=== PATIENT | male | born 1965 | race Caucasian/White ===

== ENCOUNTER 2017-01-10 05:16 | Emergency (ER) | payer MEDICAID ==
[2017-01-10 05:57] VITALS: BP 180/91
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
[2017-01-10] MEDS ORDERED: Ketorolac 60 MG/2 ML SDV IM ONE (06:45)
== END 2017-01-10 07:28 | disposition home or self-care (01) ==
LOC: JP.ED 05:16
DX: S06.0X1A Concussion with loss of consciousness of 30 minutes or less, initial encounter (principal); W01.10XA Fall on same level from slipping, tripping and stumbling with subsequent striking against unspecified object, initial encounter; Y93.9 Activity, unspecified; Y92.9 Unspecified place or not applicable; E78.00 Pure hypercholesterolemia, unspecified; I12.9 Hypertensive chronic kidney disease with stage 1 through stage 4 chronic kidney disease, or unspecified chronic kidney disease; N18.9 Chronic kidney disease, unspecified; E11.9 Type 2 diabetes mellitus without complications; Z79.4 Long term (current) use of insulin; Z79.84 Long term (current) use of oral hypoglycemic drugs; Z79.899 Other long term (current) drug therapy; M25.519 Pain in unspecified shoulder; M47.9 Spondylosis, unspecified
CPT/HCPCS: 70450; 72125; J1885; 96372; 99284-25

== ENCOUNTER 2017-07-25 05:26 | Inpatient (IN) | payer MEDICAID ==
[2017-07-25] MEDS ORDERED: Dextrose 5%-Lactated Ringers 1,000 ML IV SCH (06:30)
[2017-07-25] MEDS ORDERED: Acetaminophen 500 MG Tab PO ONE (06:33)
[2017-07-25] MEDS ORDERED: Scopolamine 1.5 MG Transdermal Patch TOP ONE (06:33)
[2017-07-25] MEDS ORDERED: Gabapentin 300 MG Cap PO ONE (06:34)
[2017-07-25] MEDS: Celecoxib 200 MG Cap PO ONE (06:52)
[2017-07-25] MEDS ORDERED: Rocuronium 50 MG/5 ML Vial ONE (06:58)
[2017-07-25] MEDS ORDERED: Propofol 200 MG/20 ML SDV ONE (06:58)
[2017-07-25] MEDS ORDERED: Dexamethasone 4 MG/ML SDV ONE (06:58)
[2017-07-25] MEDS ORDERED: Glycopyrrolate 0.2 MG/ML 5 ML MDV ONE (06:58)
[2017-07-25] MEDS ORDERED: Succinylcholine 200 MG/10 ML MDV ONE (06:58)
[2017-07-25] MEDS ORDERED: Neostigmine Methylsulfate 1 MG/ML 5 ML Syringe ONE (06:58)
[2017-07-25] MEDS ORDERED: Ondansetron 4 MG/2 ML SDV ONE (06:58)
[2017-07-25] MEDS ORDERED: cefOXitin 2 GM Vial ONE (07:04)
[2017-07-25] MEDS: cefOXitin 2 GM in Sodium Chloride 0.9% 50 ML IV ONE ×2 (07:14→10:39)
[2017-07-25] MEDS ORDERED: amLODIPine 10 MG Tab PO ONE (07:30)
[2017-07-25] MEDS ORDERED: Lidocaine 2% 100 MG/5 ML Syringe IVPUSH ONE (07:30)
[2017-07-25] MEDS ORDERED: Ropivacaine 60 ML, Dexamethasone 8 MG, EPINEPHrine 0.4 MG, Sodium Chloride 0.9% 17.6 ML NERVRT SCH ×4 (07:30)
[2017-07-25] MEDS ORDERED: Ketamine 500 MG/5 ML MDV IV SCH (07:30)
[2017-07-25] MEDS ORDERED: fentaNYL 100 MCG/2 ML SDV ONE (09:05)
[2017-07-25] MEDS ORDERED: Lactated Ringers 1,000 ML ONE (09:05)
[2017-07-25] MEDS ORDERED: Glucagon,Human Recombinant 1 MG Vial IM PRN (11:00)
[2017-07-25] MEDS ORDERED: diphenhydrAMINE 50 MG/ML SDV IVPUSH PRN (11:00)
[2017-07-25] MEDS ORDERED: Labetalol 20 MG/4 ML Syringe IVPUSH PRN (11:00)
[2017-07-25] MEDS ORDERED: SCOPOLAMINE PATCH ASK TOP SCH (11:00)
[2017-07-25] MEDS ORDERED: Ondansetron 4 MG/2 ML SDV IVPUSH PRN (11:00)
[2017-07-25] MEDS ORDERED: hydrOXYzine HCl 100 MG/2 ML SDV IM PRN (11:00)
[2017-07-25] MEDS ORDERED: 50% Dextrose in Water 50 ML Syringe IVPUSH PRN (11:00)
[2017-07-25] MEDS ORDERED: Metoclopramide 10 MG/2 ML SDV IVPUSH PRN (11:00)
[2017-07-25] MEDS: Pantoprazole 40 MG Vial IVPUSH SCH (11:55)
[2017-07-25] MEDS: Non-Formulary Medication 1 Each TOP SCH (11:56)
[2017-07-25] MEDS: Lidocaine 0.4%/D5W 2 GM/500 ML BAG IV SCH (11:56)
[2017-07-25] MEDS: Acetaminophen Soln 650 MG/20.3 ML UD Cup PO SCH ×2 (12:26→17:00)
[2017-07-25] MEDS: Pregabalin 75 MG Cap PO SCH ×2 (12:29→20:47)
[2017-07-25] MEDS: cefOXitin 2 GM in Sodium Chloride 0.9% 50 ML IV SCH ×2 (14:51→20:20)
[2017-07-25] MEDS: Dextrose 5%-Lactated Ringers 1,000 ML IV SCH ×2 (14:51→23:06)
[2017-07-25] MEDS: MVI, Adult with Vitamin K 10 ML, Thiamine 200 MG, Chromium/Copper/Mang/Selen/Zn 1 ML in... IV SCH ×4 (16:44)
[2017-07-25] MEDS: Insulin Aspart 100 Units/ML 3 ML Pen SUBCUT PRN ×2 (16:53→21:33)
[2017-07-25] MEDS: Heparin Sodium 5,000 Units/ML Vial SUBCUT SCH (17:00)
[2017-07-25] MEDS ORDERED: Insulin Detemir 100 Units/ML 3 ML Pen SUBCUT ONE (21:00)
[2017-07-25] MEDS: Pramipexole 0.5 MG Tab PO SCH (22:10)
[2017-07-26] MEDS: Acetaminophen Soln 650 MG/20.3 ML UD Cup PO SCH ×4 (00:19→18:43)
[2017-07-26] MEDS: Lidocaine 0.4%/D5W 2 GM/500 ML BAG IV SCH (00:19)
[2017-07-26] MEDS: Heparin Sodium 5,000 Units/ML Vial SUBCUT SCH ×3 (01:54→18:43)
[2017-07-26] MEDS: cefOXitin 2 GM in Sodium Chloride 0.9% 50 ML IV SCH ×2 (01:54→07:49)
[2017-07-26] MEDS ORDERED: Iohexol 647 MG/ML 50 ML SDV PO STA (02:21)
[2017-07-26] MEDS: Insulin Aspart 100 Units/ML 3 ML Pen SUBCUT PRN (04:35)
[2017-07-26] MEDS: Dextrose 5%-Lactated Ringers 1,000 ML IV SCH (05:23)
[2017-07-26] MEDS ORDERED: Insulin Detemir 100 Units/ML 3 ML Pen SUBCUT ONE (06:30)
[2017-07-26] MEDS ORDERED: Zolpidem 5 MG Tab PO PRN (07:09)
[2017-07-26] MEDS ORDERED: Ipratropium 0.06% Nasal Spray 15 ML Bottle NASBOTH PRN (07:09)
[2017-07-26] MEDS ORDERED: Fluticasone Propionate Nasal Spray 16 GM Bottle NASBOTH PRN (07:09)
[2017-07-26] MEDS: Celecoxib 200 MG Cap PO SCH (07:48)
[2017-07-26] MEDS: Pregabalin 75 MG Cap PO SCH ×3 (07:49→20:51)
[2017-07-26] MEDS: Non-Formulary Medication 1 Each TOP SCH (07:51)
--- NOTE | 2017-07-26 09:15 | PN ---
DATE OF SERVICE: 07/26/2017 SUBJECTIVE: Bora is postoperative day 1. Vital signs have been stable. He has been up ambulating. Pain is controlled. He used his CPAP last night. Blood sugars have been elevated at 344, 338, and 273. He received 20 units of Levemir last night and was started on oral metformin. REVIEW OF SYSTEMS: Remainder of review of systems is negative for any pertinent positives and negatives. OBJECTIVE: GENERAL: Bora Padilla is a pleasant 51-year-old male. He is alert and orientated. VITAL SIGNS: TPR 95.9, 59, 16, blood pressure 143/68. HEENT: Negative. NECK: Supple. HEART: Regular rate and rhythm. LUNGS: Clear. ABDOMEN: Dressings dry and intact. Abdominal binder is on. DEVANG drain put out 120 mL of a pink serosanguineous drainage. EXTREMITIES: SCDs are on and there is no peripheral edema. ASSESSMENT: Laparoscopic Eliza-en-Y gastric bypass surgery, and liver biopsy for morbid obesity and hepatomegaly. PLAN: 1. Step 2 gastric bypass diet without cereal. 2. Dressing off. 3. May shower. 4. Give Levemir 20 units now. 5. Restart Trulicity. 6. Discontinue D5 LR and changed to lactated Ringer's at 100 mL/h at 10 a.m. 7. Good pulmonary toilet encouraged. 8. We will evaluate p.r.n. or in a.m. 9. Trulicity to be given today; he takes it once weekly. HOME MEDICATIONS: To be started include, 1. Flonase 2 sprays in each nostril daily. 2. Hydrochlorothiazide 25 mg p.o. 3. Atrovent 2 sprays in each nostril p.r.n. shortness of breath, per home medication orders. 4. Lisinopril 10 mg p.o. b.i.d. 5. Skelaxin 800 mg p.o. t.i.d. 6. Methimazole 10 mg p.o. daily which is on the thyroid replacement. 7. Metoprolol tartrate 25 mg p.o. b.i.d. 8. Mirapex 1 mg p.o. bedtime. 9. Ambien 10 mg at bedtime. Iliana Paulson PA-C /[id number]
[2017-07-26] MEDS: Metoprolol Tartrate 25 MG Tab PO SCH ×2 (09:43→20:46)
[2017-07-26] MEDS: amLODIPine 10 MG Tab PO SCH (09:44)
[2017-07-26] MEDS: Hydrochlorothiazide 25 MG Tab PO SCH (09:44)
[2017-07-26] MEDS: Methimazole 5 MG Tab PO SCH (09:44)
[2017-07-26] MEDS: Lisinopril 10 MG Tab PO SCH ×2 (09:44→20:47)
[2017-07-26] MEDS ORDERED: Lactated Ringers 1,000 ML IV SCH (10:00)
--- NOTE | 2017-07-26 10:15 | CR ---
UGI wo KUB HISTORY: eval RYGBP FINDINGS: After administration of oral contrast, upright views were obtained. Post operative changes gastric bypass. Surgical drains in place. No evidence for leak. Contrast passes freely into proximal small bowel loops. IMPRESSION: No evidence for leak or obstruction.
[2017-07-26] MEDS: Pantoprazole 40 MG Vial IVPUSH SCH (11:26)
[2017-07-26] MEDS: MVI, Adult with Vitamin K 10 ML, Thiamine 200 MG, Chromium/Copper/Mang/Selen/Zn 1 ML in... IV SCH ×4 (16:13)
[2017-07-26] MEDS: Pramipexole 0.5 MG Tab PO SCH (20:47)
[2017-07-26] MEDS ORDERED: Doxepin 10 MG Cap PO SCH (21:00)
[2017-07-26] MEDS ORDERED: Pramipexole 0.5 MG Tab PO SCH (21:00)
[2017-07-27] MEDS: Heparin Sodium 5,000 Units/ML Vial SUBCUT SCH ×2 (01:08→11:26)
[2017-07-27] MEDS: Acetaminophen Soln 650 MG/20.3 ML UD Cup PO SCH ×2 (01:08→05:26)
[2017-07-27] MEDS: Celecoxib 200 MG Cap PO SCH (08:32)
[2017-07-27] MEDS: Pregabalin 75 MG Cap PO SCH (08:32)
[2017-07-27] MEDS: Hydrochlorothiazide 25 MG Tab PO SCH (08:33)
[2017-07-27] MEDS: Methimazole 5 MG Tab PO SCH (08:34)
[2017-07-27] MEDS: amLODIPine 10 MG Tab PO SCH (08:37)
[2017-07-27] MEDS: Metoprolol Tartrate 25 MG Tab PO SCH (08:37)
[2017-07-27 08:38] VITALS: BP 172/82
[2017-07-27] MEDS: Lisinopril 10 MG Tab PO SCH (08:38)
[2017-07-27] MEDS: Non-Formulary Medication 1 Each TOP SCH (08:55)
[2017-07-27] MEDS ORDERED: Cyanocobalamin (Vitamin B12) 1,000 MCG/ML SDV IM ONE (09:00)
[2017-07-27] MEDS ORDERED: Pantoprazole 40 MG Tab.CR PO SCH (11:00)
--- NOTE | 2017-07-28 01:59 | DISCH ---
ADMISSION DIAGNOSES: 1. Morbid obesity. 2. Diabetes type 2 with diabetic nephropathy. 3. Diabetic polyneuropathy. 4. Chronic low back pain with sciatica. 5. Essential hypertension. 6. Obstructive sleep apnea, on CPAP. 7. Hyperthyroidism. DISCHARGE DIAGNOSIS: Laparoscopic Eliza-en-Y gastric bypass surgery and liver biopsy for morbid obesity and hepatomegaly. HISTORY: Bora Padilla is a pleasant 51-year-old male with longstanding history of morbid obesity and increasing comorbidities. After preoperative evaluation and discussion of possible risks and possible complications, he wished to proceed with surgical procedure. HOSPITAL COURSE: Bora had a surgery on 07/25/2017. He had no operative complications. On postop day #1, he was advanced to a step-2 gastric bypass diet. Blood sugars were managed by giving Levemir 20 units. He was restarted on Trulicity, and he will continue with metformin 1000 mg twice daily. On postop day #2, blood sugars were 140 this morning. He received adequate dietary instructions. His activity was good. Pain was well managed. He is able to be discharged to home without any complications. PHYSICAL EXAMINATION: GENERAL: Bora Padilla is a 51-year-old male. VITAL SIGNS: Height is 5 feet 7.75 inches, weight is 277 pounds, BMI is 42.5. TPR is 96.5, 84, 16. Blood pressure 172/82. HEENT: Negative. NECK: Supple. HEART: Regular rate and rhythm. LUNGS: Clear. ABDOMEN: Incisions look good. 4x4s over DEVANG drains. Abdominal binder is on. EXTREMITIES: Without peripheral edema. DISPOSITION: Discharged to home. CONDITION: Stable and improving. FOLLOWUP: With Iliana Paulson PA-C, on 08/04/2017 at 9:00 a.m. HOME MEDICATIONS: 1. Tylenol 650 mg oral q.6 hours for 14 days. 2. Celebrex 200 mg p.o. daily. 3. Trulicity 1.5 subcu weekly. It is next due on 08/02/2017. 4. Metformin 1000 mg b.i.d. 5. Doxepin 30 mg oral at bedtime. 6. Flonase 2 sprays in each nostril twice daily. 7. Hydrochlorothiazide 25 mg daily. 8. Atrovent nasal spray 2 sprays in each nostril at bedtime. 9. Lisinopril 10 mg oral twice daily. 10.Lovastatin 20 mg oral at bedtime. 11.Skelaxin 800 mg oral 3 times a day. 12.Methimazole 10 mg oral daily. 13.Lopressor 25 mg oral twice daily. 14.Mirapex 1 mg at bedtime. 15.Lyrica 150 mg oral in the a.m. 16.Lyrica 75 mg oral at noon and at bedtime. 17.Zolpidem (Ambien) 10 mg oral at bedtime. 18.Norvasc 10 mg oral daily. DISCHARGE INSTRUCTIONS: Diet after discharge: Step-2 gastric bypass diet with no cereal for 2 weeks. Activity: As tolerated. No lifting greater than 10 pounds for 2 weeks. Driving: Do not drive for 1 week. Shower/bathing: May shower. Notify provider if fever, nausea, or vomiting. Wound incision care: Keep site clean and dry. Wear abdominal binder for 2 weeks and then as tolerated. SPECIAL INSTRUCTIONS: 1. Use incentive spirometer 10 times every hour while awake for 1 week. 2. Check blood sugars in the morning and p.m. Keep a record of blood sugars. Keep a record of step-2 diet intake and fluid intake. Bring records to clinic appointment.
--- NOTE | 2017-08-01 08:32 | OR ---
DATE OF PROCEDURE: 07/25/2017 PREOPERATIVE DIAGNOSIS: Morbid obesity. POSTOPERATIVE DIAGNOSES: 1. Morbid obesity. 2. Marked hepatomegaly. OPERATIVE PROCEDURE: 1. Laparoscopic Eliza-en-Y gastric bypass with long limb gastroenterostomy (50368 ). 2. Ruben-Cut needle liver biopsy (81123). ANESTHESIA: General. PARATRANSIT DRIVER: ALEISHA Esteban INDICATION FOR PROCEDURE: This is a 51-year-old male presenting with longstanding morbid obesity and increasingly significant comorbidities. After preoperative evaluation and discussion, he wished to proceed with a gastric bypass procedure. Potential risks including bleeding, infection, leaks from various GI tract closures, problems with bowel obstruction over time, as well as possibility of cardiopulmonary, septic, or hemorrhagic complications leading to were discussed, and the patient wishes to proceed. DETAILS OF PROCEDURE: The patient was taken to the operating room and placed in a supine position. After general endotracheal anesthesia was induced, he was placed in a lithotomy position, and a gastrointestinal balloon catheter was placed. Using continuous ultrasound, a bilateral subcostal transversus abdominis plane block was placed using standard formula and following this the abdomen was then prepped and draped. At 15 cm inferior, 5 cm left of the xiphoid process, transverse incision was made and peritoneal cavity entered under direct vision with Optiview trocar and inflated to 15 mmHg pressure with CO2. Laparoscope was then reinserted. No underlying trocar insertion site or injuries were seen. Following this, 5 additional trocars were placed across the upper and mid abdomen, and general exploration was undertaken. The patient was noted to have marked hepatomegaly with liver volume being roughly 2 to 3 times normal. Liver was grossly fatty infiltrated. Rubne-Cut needle biopsies were obtained from the left lobe of the liver. Minimal bleeding from the biopsy sites was controlled with electrocautery. The omentum was then divided in the midline up to the level of the transverse colon. This allowed identification of the small bowel to the ligament of Treitz. Small bowel was then traced out additional 150 cm, where it was divided with EN stapler. Small bowel was then traced out 200 cm further distally, where the [id number] enteroenterostomy was accomplished with internal firing of the Endo-EN 60-mm stapler. Common opening was closed transversely with the same stapler, angles anastomosed, and the mesenteric defect approximated with some 0 Ethibond stitch, along with fibrin sealant. The Eliza limb was then brought up to the antecolic antegastric approach to the esophagogastric junction without tension. The liver was then retracted anteriorly. The patient noted not to have any significant hiatal hernia. The gastrointestinal balloon catheter was inflated to 15 mL and pulled up snugly against the EG junction. Gastric wall over the apex of the balloon was then marked with electrocautery, and balloon catheter deflated and pulled up from the esophagus. The lesser omental tissue adjacent to gastric cardia was then incised, allowing initiation of gastric pouch to the level of the cauterized ramon at the gastric pouch. The pouch formation was initiated with a transverse firing of the EN stapler at the level of the gastric pouch and then completed with 2 additional firings of EN stapler up to and through the angle of His. Upon completion of the pouch, both staple lines were noted to be intact. The anvil of a 25-mm EEA stapler was attached to [place] sump type tube and was brought down through the mouth and taken out through a small opening in the gastric pouch, allowing the anvil likewise to be pulled down to within the gastric pouch. The divided end of the Eliza limb was then opened and main body of the EEA stapler passed several centimeters in the lumen of small bowel and brought up the anvil and united with it, thus creating the gastrojejunostomy. Upon removal of the stapler, double donuts of mucosa were noted within it. The small bowel was closed off with a vascular staple line. Gastrojejunostomy was then reinforced with some 3-0 Vicryl seromuscular stitch, along with fibrin sealant. Leak test was accomplished with injection of 120 mL of air in the gastric pouch, while submerged with cefoxitin-containing saline solution. No leaks were identified. A single Aniket-Duvall drain was then placed through the left lateral trocar site and placed adjacent to the gastrojejunostomy up into the splenic fossa. The remaining trocars were removed , the peritoneal cavity deflated, and the skin incisions were closed with 4-0 Vicryl stitch and the drains affixed with 4-0 Vicryl stitch as well. The patient was taken to the recovery room in satisfactory condition. Richard Wilson MD /[id number] MTDD
== END 2017-07-27 10:55 | disposition home or self-care (01) | DRG 621 ==
LOC: JP.SDS 05:26 → JP.SDSSCHI 05:26 → JP.2SS 09:30 → EDSTATUS 11:00
PROVIDERS: ADMIT Surgery; ATTEND Surgery
PROC: 0FB24ZX Excision of Left Lobe Liver, Percutaneous Endoscopic Approach, Diagnostic (ICD-10-PCS; principal; 2017-07-25)
PROC: 0D164ZA Bypass Stomach to Jejunum, Percutaneous Endoscopic Approach (ICD-10-PCS; principal; 2017-07-25)
DX: E66.01 Morbid (severe) obesity due to excess calories (principal); Z68.41 Body mass index [BMI] 40.0-44.9, adult; E11.21 Type 2 diabetes mellitus with diabetic nephropathy; E11.42 Type 2 diabetes mellitus with diabetic polyneuropathy; M54.40 Lumbago with sciatica, unspecified side; I10 Essential (primary) hypertension; G47.33 Obstructive sleep apnea (adult) (pediatric); E05.90 Thyrotoxicosis, unspecified without thyrotoxic crisis or storm; Z87.891 Personal history of nicotine dependence; G89.4 Chronic pain syndrome; R16.0 Hepatomegaly, not elsewhere classified; Z79.84 Long term (current) use of oral hypoglycemic drugs; Z88.0 Allergy status to penicillin; Z88.2 Allergy status to sulfonamides; Z88.8 Allergy status to other drugs, medicaments and biological substances; K76.0 Fatty (change of) liver, not elsewhere classified
CPT/HCPCS: 36415; 74240; 74240-26; 82962; 86850; 86900; 86901; 88307; 88313; 94762; A9270-GY; C9113; J0171; J0330; J0694; J1100; J1644; J2001; J2405; J2704; J2710; J2765; J2795; J3010; J3410; J3411; J3420; J7030; J7042; J7050; J7120; Q9967

== ENCOUNTER 2018-06-22 20:05 | Emergency (ER) | payer MEDICAID, OTHER ==
[2018-06-22 20:30] VITALS: BP 165/61
[2018-06-22] MEDS ORDERED: Acetaminophen/HYDROcodone 325-5 MG Tab PO ONE (21:30)
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
--- NOTE | 2018-06-25 09:45 | CR ---
Ribs 2V w Chest Rt CLINICAL HISTORY: Pain, trauma FINDINGS: There is no acute fracture within the ribs. No destructive changes are seen. There is no fo vanessa pleural thickening or obvious effusion. IMPRESSION: Negative right ribs.
== END 2018-06-22 21:48 | disposition home or self-care (01) ==
LOC: JP.ED 20:05
DX: S20.211A Contusion of right front wall of thorax, initial encounter (principal); E78.00 Pure hypercholesterolemia, unspecified; I10 Essential (primary) hypertension; J45.909 Unspecified asthma, uncomplicated; F41.9 Anxiety disorder, unspecified; F32.9 Major depressive disorder, single episode, unspecified; E11.42 Type 2 diabetes mellitus with diabetic polyneuropathy; Z88.0 Allergy status to penicillin; Z88.2 Allergy status to sulfonamides; Z88.8 Allergy status to other drugs, medicaments and biological substances; Z79.84 Long term (current) use of oral hypoglycemic drugs; Z79.82 Long term (current) use of aspirin; V18.9XXA Unspecified pedal cyclist injured in noncollision transport accident in traffic accident, initial encounter
CPT/HCPCS: 71101; 99284; A9270

== ENCOUNTER 2019-06-11 00:15 | Inpatient (IN) | payer OTHER ==
[2019-06-11] MEDS ORDERED: cefOXitin 1 GM Vial IVPUSH ONE (01:54)
--- NOTE | 2019-06-11 02:17 | EDM.PDOC ---
ED HPI GENERAL MEDICAL PROBLEM - General Chief Complaint: Lower Extremity Injury/Pain Stated Complaint: SEVERE INFECTION IN TOE/LEG Time Seen by Provider: 06/11/19 01:05 Source of Information: Reports: Patient History Limitations: Reports: No Limitations - History of Present Illness INITIAL COMMENTS - FREE TEXT/NARRATIVE: 53-year-old male with type 2 diabetes has had a lingering right foot infection for the past 2 weeks. He was on oral Bactrim and seemed to be doing okay, ran out of the Bactrim 2 days ago and has been on doxycycline. It is gotten much worse over the past 24-48 hours so he went into his clinic today to be checked. At that time his primary provider was very alarmed at how much inflammation the patient had in his foot and leg and told him he needed to go to the emergency room to be admitted to the hospital. He agreed to do so but went home instead. He now came in tonight because the inflammation is worsening. He has no fevers or chills, no nausea or vomiting. Onset: Gradual Duration: Week(s): (2-3 weeks) Location: Reports: Lower Extremity, Right Associated Symptoms: Reports: Malaise. Denies: Fever/Chills Right Foot Pain Score (Numeric/FACES): 8 - Related Data Allergies Allergy/AdvReac Type Severity Reaction Status Date / Time clindamycin Allergy Hives Verified 06/11/19 04:25 Penicillins Allergy Cannot Verified 06/11/19 04:25 Remember Sulfa (Sulfonamide Allergy Swelling Verified 06/11/19 04:25 Antibiotics) tramadol Allergy Confusion Verified 06/11/19 04:26 simvastatin [From Zocor] AdvReac Nausea and Verified 06/11/19 04:25 Vomiting Home Meds: Home Meds Lisinopril 10 mg PO BID 01/10/17 [History] Lovastatin 20 mg PO BEDTIME 01/10/17 [History] Aspirin [Ecotrin EC] 81 mg PO DAILY 07/20/17 [History] Metaxalone [Skelaxin] 800 mg PO TID PRN 07/20/17 [History] Methimazole [Tapazole] 10 mg PO DAILY 07/20/17 [History] Metoprolol Tartrate [Lopressor] 25 mg PO BID 07/20/17 [History] Pramipexole [Mirapex] 1 mg PO BEDTIME 07/20/17 [History] Doxepin [SINEquan] 50 mg PO BEDTIME 07/26/17 [History] Mirtazapine 15 mg PO BEDTIME 06/22/18 [History] Acetaminophen [Tylenol] 650 mg PO Q6H PRN 06/11/19 [History] Doxycycline Hyclate 100 mg PO BID 06/11/19 [History] glipiZIDE [Glucotrol] 10 mg PO BID 06/11/19 [History] Past Medical History HEENT History: Reports: Impaired Vision Cardiovascular History: Reports: High Cholesterol, Hypertension, SOB on Exertion Respiratory History: Reports: Asthma, Sleep Apnea, SOB Gastrointestinal History: Reports: Helicobacter Pylori, Hiatal Hernia, Other ( See Below) Other Gastrointestinal History: necrotizingfacitis Genitourinary History: Reports: Renal Disease Musculoskeletal History: Reports: Arthritis, Back Pain, Chronic, Fracture, Osteoarthritis Neurological History: Reports: Neuropathy, Peripheral Psychiatric History: Reports: Anxiety, Depression Endocrine/Metabolic History: Reports: Diabetes, Type II, IDDM, Obesity/BMI 30+, Vitamin D Deficiency Hematologic History: Reports: Anemia, Blood Transfusion(s), Iron Deficiency Immunologic History: Reports: None Oncologic (Cancer) History: Reports: None Dermatologic History: Reports: Chronic Cellulitis - Infectious Disease History Infectious Disease History: Reports: Chicken Pox, Helicobacter Pylori, Herpes, MRSA - Past Surgical History Head Surgeries/Procedures: Reports: None HEENT Surgical History: Reports: None Cardiovascular Surgical History: Reports: None Respiratory Surgical History: Reports: None GI Surgical History: Reports: Colonoscopy, EGD Endocrine Surgical History: Reports: None Neurological Surgical History: Reports: None Musculoskeletal Surgical History: Reports: None Other Musculoskeletal Surgeries/Procedures:: finger fx Oncologic Surgical History: Reports: None Dermatological Surgical History: Reports: None Social & Family History - Family History Family Medical History: Noncontributory - Tobacco Use Smoking Status *Q: Never Smoker - Caffeine Use Caffeine Use: Reports: Energy Drinks, Soda Review of Systems - Review of Systems Review Of Systems: See Below Constitutional: Denies: Fever Eyes: Reports: No Symptoms Respiratory: Reports: No Symptoms Cardiovascular: Reports: No Symptoms GI/Abdominal: Reports: No Symptoms Genitourinary: Denies: Dysuria Skin: Reports: Erythema (Significant erythema of the right lower extremity, particularly the large toe, dorsum of foot and lower leg) Neurological: Reports: Other (Peripheral neuropathy) ED EXAM, GENERAL - Physical Exam Exam: See Below Exam Limited By: No Limitations General Appearance: Alert, No Apparent Distress Eye Exam: Bilateral Eye: EOMI Respiratory/Chest: No Respiratory Distress, Lungs Clear Cardiovascular: Regular Rate, Rhythm, Tachycardia GI/Abdominal: Non-Tender Extremities: Other (Severe inflammatory changes of the right great toe and distal foot with weeping, erythema and swelling. Erythema extends over the top of the foot and up the lower leg to the knee.) Course - Vital Signs Last Recorded V/S: Last Vital Signs Temp 99.6 F 06/11/19 04:25 Pulse 101 H 06/11/19 05:34 Resp 18 06/11/19 04:25 BP 190/91 H 06/11/19 05:34 Pulse Ox 94 L 06/11/19 04:25 - Orders/Labs/Meds Orders: Active Orders 24 hr Category Date Time Status CULTURE BLOOD [BC] Urgent Lab 06/11/19 02:10 Received CULTURE BLOOD [BC] Urgent Lab 06/11/19 02:10 Received Blood Culture x2 Reflex Set [OM.PC] Urgent Oth 06/11/19 01:59 Ordered Medication Orders Aspirin (Halfprin) 81 mg PO DAILY [facility] Cefoxitin Sodium (Mefoxin) 1 gm IVPUSH Q12H [facility] Doxepin HCl (Sinequan) 50 mg PO BEDTIME [facility] Duloxetine HCl (Cymbalta) 30 mg PO BID [facility] Glipizide (Glucotrol) 10 mg PO BIDAC [facility]A Sodium Chloride (Normal Saline) 1,000 mls @ 150 mls/hr IV ASDIRECTED ESTELA Last Admin: 06/11/19 05:35 Dose: 150 mls/hr Lidocaine (Lidoderm 5%) 1,400 mg TRDERM DAILY [facility] Lisinopril (Prinivil) 10 mg PO DAILY ESTEL[facility] Loratadine (Claritin) 10 mg PO DAILY [facility] Lovastatin (Mevacor) 20 mg PO BEDTIME [facility] Methimazole (Methimazole) 10 mg PO DAILY [facility] Metoprolol Tartrate (Lopressor) 25 mg PO BIDPC [facility] Mirtazapine (Remeron) 0.5 - 1 mg PO BEDTIME [facility] Miscellaneous Information (Remove Patch) 2 ea TRDERM BEDTIME [facility] Morphine Sulfate (Morphine) 2 mg IVPUSH Q1H PRN PRN Reason: Pain Last Admin: 06/11/19 05:33 Dose: 2 mg Pramipexole Dihydrochloride (Mirapex) 1 mg PO BID [facility]EL[facility] Sodium Chloride (Saline Flush) 10 ml FLUSH ASDIRECTED PRN PRN Reason: Keep Vein Open Tizanidine HCl (Zanaflex) 4 mg PO TID PRN PRN Reason: MUSCLE SPASMS Labs: Laboratory Tests 06/11/19 06/11/19 Range/Units 02:10 02:10 WBC 5.3 (4.5-11.0) K/uL RBC 4.17 L (4.30-5.90) M/uL Hgb 11.9 L (12.0-15.0) g/dL Hct 37.3 L (40.0-54.0) % MCV 89 (80-98) fL MCH 29 (27-31) pg MCHC 32 (32-36) % Plt Count 230 (150-400) K/uL Neut % (Auto) 62 (36-66) % Lymph % (Auto) 26 (24-44) % Harrison % (Auto) 10 H (2-6) % Eos % (Auto) 2 (2-4) % Baso % (Auto) 0 (0-1) % Sodium 140 (140-148) mmol/L Potassium 3.8 (3.6-5.2) mmol/L Chloride 105 (100-108) mmol/L Carbon Dioxide 24 (21-32) mmol/L Anion Gap 11.0 (5.0-14.0) mmol/L BUN 15 (7-18) mg/dL Creatinine 0.9 (0.8-1.3) mg/dL Est Cr Clr Drug Dosing 87.73 mL/min Estimated GFR (MDRD) > 60 (>60) Glucose 279 H (74-106) mg/dL Calcium 8.2 L (8.5-10.1) mg/dL Total Bilirubin 0.2 (0.2-1.0) mg/dL AST 12 L (15-37) U/L ALT 15 (12-78) U/L Alkaline Phosphatase 117 H (46-116) U/L Total Protein 6.2 L (6.4-8.2) g/dL Albumin 2.0 L (3.4-5.0) g/dL Globulin 4.2 H (2.3-3.5) g/dL Albumin/Globulin Ratio 0.5 L (1.2-2.2) Meds: Medications Generic Name Dose Route Start Last Admin Trade Name Cady PRN Reason Stop Dose Admin Aspirin 81 mg 06/11/19 09:00 Halfprin PO DAILY [facility] Cefoxitin Sodium 1 gm 06/11/19 14:00 Mefoxin IVPUSH Q12H ESTELA Doxepin HCl 50 mg 06/11/19 21:00 Sinequan PO BEDTIME ESTELA Duloxetine HCl 30 mg 06/11/19 09:00 Cymbalta PO BID ESTELA Glipizide 10 mg 06/11/19 07:30 Glucotrol PO BIDAC [facility] Sodium Chloride 1,000 mls @ 150 mls/hr 06/11/19 05:30 06/11/19 05:35 Normal Saline IV 150 mls/hr ASDIRECTED ESTELA Administration Lidocaine 1,400 mg 06/11/19 09:00 Lidoderm 5% TRDERM DAILY [facility] Lisinopril 10 mg 06/12/19 09:00 Prinivil PO DAILY [facility] Loratadine 10 mg 06/11/19 09:00 Claritin PO DAILY [facility] Lovastatin 20 mg 06/11/19 21:00 Mevacor PO BEDTIME [facility] Methimazole 10 mg 06/11/19 09:00 Methimazole PO DAILY [facility] Metoprolol Tartrate 25 mg 06/11/19 08:00 Lopressor PO BIDPC [facility] Mirtazapine 0.5 - 1 mg 06/11/19 21:00 Remeron PO BEDTIME [facility] Miscellaneous Information 2 ea 06/11/19 21:00 Remove Patch TRDERM BEDTIME [facility] Morphine Sulfate 2 mg 06/11/19 05:01 06/11/19 05:33 Morphine IVPUSH 2 mg Q1H PRN Administration Pain Pramipexole Dihydrochloride 1 mg 06/11/19 09:00 Mirapex PO BID [facility] Sodium Chloride 10 ml 06/11/19 04:38 Saline Flush FLUSH ASDIRECTED PRN Keep Vein Open Tizanidine HCl 4 mg 06/11/19 04:32 Zanaflex PO TID PRN MUSCLE SPASMS Discontinued Medications Generic Name Dose Route Start Last Admin Trade Name Cady PRN Reason Stop Dose Admin Cefoxitin Sodium 1 gm 06/11/19 01:54 08/06/19 02:14 Mefoxin IVPUSH 06/11/19 01:55 1 gm ONETIME ONE Administration Sodium Chloride 1,000 mls @ 150 mls/hr 06/11/19 04:45 06/11/19 05:35 Normal Saline IV Not Given .Q6H40M ESTELA Lisinopril 10 mg 06/11/19 05:30 06/11/19 05:34 Prinivil PO 06/11/19 05:31 10 mg ONETIME ONE Administration Metoprolol Tartrate 25 mg 06/11/19 05:23 06/11/19 05:34 Lopressor PO 06/11/19 05:24 25 mg ONETIME ONE Administration Metoprolol Tartrate 25 mg 06/11/19 05:30 06/11/19 05:33 Lopressor PO 06/11/19 05:31 Not Given ONETIME ONE - Re-Assessments/Exams Free Text/Narrative Re-Assessment/Exam: 06/11/19 02:17 An IV was started, CBC, CMP and blood cultures obtained. Patient will be given 1 g of Mefoxin IV. 06/11/19 06:01 White count was normal, hemoglobin 11.9. Glucose 247. Dr. Holbrook was consulted to see the patient to consider admission for continuing IV antibiotics, with further evaluation by the hospitalist service and possibly orthopedics. Departure - Departure Time of Disposition: 04:14 Disposition: Admitted As Inpatient 65 Clinical Impression: Cellulitis in diabetic foot - Discharge Information - My Orders Last 24 Hours: My Active Orders 06/11/19 01:59 Blood Culture x2 Reflex Set [OM.PC] Urgent 06/11/19 02:10 CULTURE BLOOD [BC] Urgent CULTURE BLOOD [BC] Urgent - Assessment/Plan Last 24 Hours: My Active Orders 06/11/19 01:59 Blood Culture x2 Reflex Set [OM.PC] Urgent 06/11/19 02:10 CULTURE BLOOD [BC] Urgent CULTURE BLOOD [BC] Urgent
[2019-06-11] MEDS ORDERED: tiZANidine 4 MG Tab PO PRN (04:32)
[2019-06-11] MEDS ORDERED: Sodium Chloride 0.9% 10 ML Syringe FLUSH PRN (04:38)
[2019-06-11] MEDS: Sodium Chloride 0.9% 1,000 ML IV SCH ×5 (04:54→20:34)
[2019-06-11] MEDS ORDERED: Sodium Chloride 0.9% 1,000 ML IV SCH (05:02)
[2019-06-11] MEDS ORDERED: Metoprolol Tartrate 25 MG Tab PO ONE ×2 (05:23→05:30)
[2019-06-11] MEDS ORDERED: Lisinopril 10 MG Tab PO ONE (05:30)
[2019-06-11] MEDS: Morphine 2 MG/ML Syringe IVPUSH PRN ×4 (05:33→15:56)
[2019-06-11] MEDS: Metoprolol Tartrate 25 MG Tab PO SCH ×2 (08:01→17:52)
[2019-06-11] MEDS: glipiZIDE 5 MG Tab PO SCH ×2 (08:11→15:58)
[2019-06-11] MEDS: Lidocaine 5% 700 MG Patch TRDERM SCH (08:11)
[2019-06-11] MEDS: Furosemide 20 MG Tab PO SCH ×2 (08:11→15:02)
[2019-06-11] MEDS: Loratadine 10 MG Tab PO SCH (08:11)
[2019-06-11] MEDS: Aspirin 81 MG Tab.EC PO SCH (08:11)
[2019-06-11] MEDS: DULoxetine 30 MG Cap PO SCH ×2 (08:11→21:19)
[2019-06-11] MEDS: Methimazole 5 MG Tab PO SCH (08:12)
[2019-06-11] MEDS: Pramipexole 0.5 MG Tab PO SCH ×2 (08:12→21:19)
--- NOTE | 2019-06-11 10:49 | HP ---
CHIEF COMPLAINT: Right foot pain. HISTORY OF PRESENT ILLNESS: A 53-year-old with longstanding diabetes who has had problems with foot infection in the past, but has been able to be successfully treated, but was never this bad. Apparently started about 2 weeks ago where he started having swelling, pain, redness of his right 1st toe, was treated with Bactrim and then doxycycline was added about alf through. It sounds like it was getting better, but then over the last day, started having increasing pain, swelling, redness with some extending erythema up into his pino. He was seen in his regular clinic at [facility] in [place] and they told him to go to the emergency room either in [place] or [place] for admission for further evaluation and treatment as it looked like it was getting worse. He went home and had a drink, fell asleep, and decided to come in at midnight. Other than his right foot, he denies any other complaints, was evaluated by emergency room physician. I was asked to admit the patient for further evaluation and treatment. PAST MEDICAL HISTORY: 1. Type 2 diabetes mellitus with peripheral neuropathy. 2. Essential hypertension. 3. Chronic back pain, lumbar. 4. Chronic fatigue. 5. Obstructive sleep apnea, on CPAP. 6. History of anemia. 7. Arthritis pain of his hands. 8. Left shoulder pain. 9. Bilateral hip pain. 10.Iron-deficiency anemia. 11.Insomnia. 12.History of spinal stenosis with herniated lumbar disk. 13.Periodic limb movement disorder. 14.History of hyperthyroidism. 15.Status post gastric bypass surgery done here in [place]. 16.Restless legs syndrome. 17.Edema in his extremities. 18.Adjustment disorder with depressed mood. 19.Necrotizing fasciitis to his abdominal wall when he was morbidly obese and had multiple surgeries for this. MEDICATIONS: 1. He has just finished with Bactrim a couple of days ago. 2. He is on doxycycline 100 mg b.i.d. 3. Lasix 20 mg b.i.d. 4. Metoprolol 25 mg b.i.d. 5. Lovastatin 20 mg daily. 6. Cymbalta 30 mg b.i.d. 7. Tapazole 10 mg t.i.d. 8. Glipizide 10 mg b.i.d. 9. Claritin 10 mg daily. 10.Lisinopril 10 mg daily. 11.Zofran p.r.n. 12.Bactroban ointment. 13.Mirapex 1 mg b.i.d. 14.Zanaflex 4 mg t.i.d. 15.Remeron 15 mg half to full tablet at bedtime. 16.Atrovent nasal spray. 17.Flonase nasal spray. 18.Lidoderm patch. 19.Acetaminophen p.r.n. 20.Multivitamin. 21.Aspirin 81 mg daily. 22.Doxepin 50 mg at bedtime. SOCIAL HISTORY: Nonsmoker. He has been drinking regular alcohol daily. FAMILY HISTORY: Significant for diabetes. OBJECTIVE: VITAL SIGNS: Reviewed. PHARYNX: Clear. NECK: Supple. No adenopathy or thyromegaly. LUNGS: Clear. HEART: Regular without murmurs. ABDOMEN: Soft, nontender. No mass or organomegaly palpated. EXTREMITIES: He does have edema of both legs, right side worse than left, with erythema to his pino and his right 1st toe, very erythematous, warm, tender, and draining. LABORATORY DATA: Labs were reviewed. He states he has had chronic kidney disease, but his kidney function actually looks okay. White count was normal. Blood cultures obtained. ASSESSMENT: 1. Cellulitis to right foot. Cannot rule out osteomyelitis. Admit him as inpatient to the hospitalist service for further evaluation and treatment. The patient has been started on Mefoxin 1 g IV in the ER which we will continue. 2. Type 2 diabetes mellitus. We will continue with his current treatment. He does have peripheral neuropathy. 3. Essential hypertension. 4. Hyperlipidemia. 5. Otherwise, we will continue with his current medications. Salvador Holbrook MD /[id number]
[2019-06-11] MEDS: cefOXitin 2 GM in Sodium Chloride 0.9% 50 ML IV SCH ×3 (13:07→23:51)
[2019-06-11] MEDS ORDERED: Gadoteridol 279.3 MG/ML 20 ML SDV IV SCH (14:00)
[2019-06-11] MEDS ORDERED: cefOXitin 1 GM Vial IVPUSH SCH (14:00)
--- NOTE | 2019-06-11 14:44 | CRLMR ---
INDICATION: Right foot infection. TECHNIQUE: Axial, sagittal and coronal T1, STIR and postcontrast T1 weighted images with fat saturation were obtained of the right forefoot. COMPARISON: No prior. FINDINGS: Cellulitis of the great toe of the right foot. 1.4 x 2.7 x 1.8 centimeter fluid collection within the plantar and lateral soft tissues of the 1st digit. There are foci of low signal within the collection which may relate to gas (which could be correlated radiographically). Osteomyelitis of the distal and proximal phalanges of the great toe with septic arthritis of the interphalangeal joint of the great toe. Small amount of nonspecific 1st MTP joint fluid. No erosive change about that articulation. No osteomyelitis of the 1st metatarsal bone or sesamoid bones. - No acute fracture. Generalized soft tissue edema. Subacute on chronic denervation changes involving foot musculature. Degenerative changes at the midfoot and forefoot junction. IMPRESSION: 1. Cellulitis of the great toe of the right foot with soft tissue fluid collection likely reflecting an abscess. Foci of low signal within the collection may relate to gas (which could be correlated radiographically). 2. Septic arthritis of the interphalangeal joint of the great toe. 3. Osteomyelitis of the distal and proximal phalanges of the great toe. 4. Small non-specific 1st MTP joint effusion. Dictated by Juan Luevano MD @ Jun 11 2019 2:30PM (Electronically Signed)
--- NOTE | 2019-06-11 16:01 | CRLUS ---
Exam: Resting ankle-brachial indices. Indication: Right diabetic foot ulcer. Comparison: None. Findings: Maximum systolic blood pressure in the right brachial artery: 150 mmHg Maximum systolic blood pressure in the left brachial artery: 145 mmHg Right lower extremity: PT: 160 mmHg (DOLLY 1.07); multiphasic flow DP: 185 mmHg (DOLLY 1.23); biphasic flow Left lower extremity: PT: 200 mmHg (DOLLY 1.33); biphasic flow DP: 190 mmHg (DOLLY 1.27); biphasic flow Impression: 1. Normal bilateral resting ABIs. 2. Patent bilateral pedal arteries with multiphasic flow. 3. Elevated blood pressures. Dictated by Trace Johnson MD @ Jun 11 2019 3:58PM (Electronically Signed)
[2019-06-11] MEDS: Insulin Lispro 100 Unit/ML 3 ML KwikPen SUBCUT SCH ×2 (17:41→21:19)
[2019-06-11] MEDS: Acetaminophen/HYDROcodone 325-5 MG Tab PO PRN ×2 (17:44→21:30)
[2019-06-11] MEDS ORDERED: Mirtazapine 15 MG Tab PO SCH (21:00)
[2019-06-11] MEDS: Doxepin 25 MG Cap PO SCH (21:19)
[2019-06-12] MEDS: Sodium Chloride 0.9% 1,000 ML IV SCH ×2 (03:11→09:21)
[2019-06-12] MEDS: cefOXitin 2 GM in Sodium Chloride 0.9% 50 ML IV SCH ×3 (05:35→17:36)
[2019-06-12] MEDS: Acetaminophen/HYDROcodone 325-5 MG Tab PO PRN ×3 (05:44→17:34)
[2019-06-12] MEDS: Insulin Lispro 100 Unit/ML 3 ML KwikPen SUBCUT SCH ×4 (09:10→22:02)
[2019-06-12] MEDS: Loratadine 10 MG Tab PO SCH (09:10)
[2019-06-12] MEDS: glipiZIDE 5 MG Tab PO SCH ×2 (09:10→17:24)
[2019-06-12] MEDS: Pramipexole 0.5 MG Tab PO SCH ×2 (09:10→20:36)
[2019-06-12] MEDS: Lisinopril 10 MG Tab PO SCH (09:11)
[2019-06-12] MEDS: DULoxetine 30 MG Cap PO SCH ×2 (09:11→20:36)
[2019-06-12] MEDS: Furosemide 20 MG Tab PO SCH ×2 (09:11→15:26)
[2019-06-12] MEDS: Methimazole 5 MG Tab PO SCH (09:11)
[2019-06-12] MEDS: Aspirin 81 MG Tab.EC PO SCH (09:12)
[2019-06-12] MEDS: Metoprolol Tartrate 25 MG Tab PO SCH ×2 (09:12→17:24)
[2019-06-12] MEDS: Lidocaine 5% 700 MG Patch TRDERM SCH (09:19)
[2019-06-12 09:32] LABS: HEMOGLOBIN A1C 9.2 % (4.5-6.2)
[2019-06-12] MEDS ORDERED: Diphtheria,Pertussis(Acell),Tetanus Vaccine 0.5 ML SDV IM ONE (10:00)
--- NOTE | 2019-06-12 11:35 | HP ---
REASON FOR VISIT: Bariatric surgery Department was asked to see Bora in regard to his Eliza- en-Y gastric bypass surgery approximately 2 years ago and he has not been following up with the Department. He will be followed for right toe and foot cellulitis by Ronen Oconnell MD. HISTORY OF PRESENT ILLNESS: Bora did have a Eliza-en-Y gastric bypass surgery, he thinks a couple of years ago and has not followed through. He states he eats a lot of protein and drinks a lot of liquid. Has not been taking his vitamins. His lowest weight was 212 one year ago. Blood sugars have been running 150 to 170. He does have diabetes, follows with [facility], and has had problems with a foot infection in the past. Two weeks ago, he started having swelling and redness in his great toe, treated with Bactrim, then doxycycline, and he states it was getting better but then all of a sudden, it started to spread up to his lower leg. He was told to go to the emergency room. PAST MEDICAL HISTORY: SP Eliza-en-Y gastric bypass surgery; unspecified surgical malabsorption; B12 deficiency; type 2 diabetes with peripheral neuropathy; essential hypertension; chronic back pain, lumbar; chronic fatigue; COPD, on CPAP; history of anemia; arthritis of hands; joint pain; iron-deficiency anemia; insomnia; hyperthyroidism; restless legs syndrome; history of necrotizing fasciitis, abdominal wall, when he was morbidly obese and had several surgeries. CURRENT MEDICATIONS: See EMR. SOCIAL HISTORY: Smoking history negative. Alcohol occasionally. FAMILY HISTORY: Positive for diabetes. REVIEW OF SYSTEMS: HEENT: Negative. NECK: Negative. CHEST: No chest pain, shortness of breath, fast or irregular heart beat. LUNGS: Negative for cough. ABDOMEN: No nausea, vomiting, diarrhea, or constipation. No red or black stools. : Negative. EXTREMITIES: Reports hip, knee, and joint pain currently having an increased pain with infection in his right foot and toe. NEUROLOGIC: Chronic back pain, diabetic neuropathy. No loss of coordination. No history of seizures. PSYCHIATRIC: Negative for any depression or anxiety. SKIN: Without any rash except for chief complaint. Remainder of review of systems negative for any pertinent positives and negatives. OBJECTIVE: GENERAL: Bora Padilla is a 53-year-old male, alert and orientated. VITAL SIGNS: Height is 5 feet 6.93 inches and weight is 219 pounds. TPR is 95.9, 61, 16. Blood pressure 160/59. HEENT: Negative. NECK: Supple. HEART: Regular rate and rhythm. LUNGS: Clear. ABDOMEN: Soft and nontender. EXTREMITIES: Right toe was red, swollen, rash. There is some cellulitis going up into the anterior tibia area. Left has SCD on. NEUROLOGIC: Intact. PSYCHIATRIC: Mood and affect appropriate. ASSESSMENT: 1. Cellulitis right foot. 2. Type 2 diabetes with peripheral neuropathy. 3. Essential hypertension. 4. Hyperlipidemia. 5. Status post Eliza-en-Y gastric bypass surgery. 6. Unspecified surgical malabsorption. 7. B12 deficiency. 8. Iron-deficiency anemia. PLAN: 1. Check routine bariatric labs; CBC, CMP, mag, phos, folate, vitamin B12, vitamin B1, vitamin D, copper, vitamin A, and zinc, hemoglobin A1c. 2. Dietary consult. 3. Bariatric team consult. 4. We will continue to watch for results of lab results and adjust vitamins accordingly. 5. We will evaluate p.r.n. or in a.m. Iliana Paulson PA-C /[id number]
[2019-06-12] MEDS ORDERED: fentaNYL 100 MCG/2 ML SDV IVPUSH PRN (12:43)
--- NOTE | 2019-06-12 12:48 | PCM.PN ---
- General Info Date of Service: 06/12/19 Admission Dx/Problem (Free Text): Diabetic foot ulcer Subjective Update: Did well throughout the evening continuing to have increased pain in his foot hydrocodone does help but may need something more for breakthrough pain. Did review results of DOLLY and MRI studies with him today. Also discussed the possibility of a palpitation of the great toe. He will have a consultation with general surgery today for further care Functional Status: Reports: Pain Controlled, Tolerating Diet - Review of Systems General: Reports: No Symptoms Pulmonary: Reports: No Symptoms Cardiovascular: Reports: No Symptoms Gastrointestinal: Reports: No Symptoms Musculoskeletal: Reports: Foot Pain - Patient Data Vitals - Most Recent: Last Vital Signs Temp 96.2 F 06/12/19 11:00 Pulse 56 L 06/12/19 11:00 Resp 18 06/12/19 11:00 BP 142/66 H 06/12/19 11:00 Pulse Ox 97 06/12/19 11:00 Weight - Most Recent: 99.609 kg I&O - Last 24 Hours: Intake & Output 06/11/19 06/12/19 06/12/19 22:59 06:59 14:59 Intake Total 3070 2410 480 Balance 3070 2410 480 Lab Results Last 24 Hours: Laboratory Results - last 24 hr 06/12/19 06/12/19 06/12/19 Range/Units 04:23 04:23 08:42 WBC 5.1 (4.5-11.0) K/uL RBC 3.57 L (4.30-5.90) M/uL Hgb 10.2 L (12.0-15.0) g/dL Hct 32.9 L (40.0-54.0) % MCV 92 (80-98) fL MCH 29 (27-31) pg MCHC 31 L (32-36) % Plt Count 211 (150-400) K/uL Neut % (Auto) 52 (36-66) % Lymph % (Auto) 34 (24-44) % [place] % (Auto) 12 H (2-6) % Eos % (Auto) 2 (2-4) % Baso % (Auto) 0 (0-1) % Sodium 139 L (140-148) mmol/L Potassium 4.1 (3.6-5.2) mmol/L Chloride 106 (100-108) mmol/L Carbon Dioxide 26 (21-32) mmol/L Anion Gap 11.1 (5.0-14.0) mmol/L BUN 14 (7-18) mg/dL Creatinine 0.9 (0.8-1.3) mg/dL Est Cr Clr Drug Dosing 87.51 mL/min Estimated GFR (MDRD) > 60 (>60) Glucose 177 H (74-106) mg/dL Hemoglobin A1c (4.5-6.2) % Calcium 8.9 (8.5-10.1) mg/dL Phosphorus (2.5-4.9) mg/dL Magnesium (1.8-2.4) mg/dL Ferritin 133 (8-388) ng/ml Total Bilirubin (0.2-1.0) mg/dL AST (15-37) U/L ALT (12-78) U/L Alkaline Phosphatase (46-116) U/L Total Protein (6.4-8.2) g/dL Albumin (3.4-5.0) g/dL Globulin (2.3-3.5) g/dL Albumin/Globulin Ratio (1.2-2.2) Vitamin B12 187 L (193-986) pg/ml Vitamin D 25-Hydroxy (30-100) ng/mL Folate 18.5 (8.6-58.9) ng/ml 06/12/19 06/12/19 06/12/19 Range/Units 08:42 08:42 08:42 WBC 5.1 (4.5-11.0) K/uL RBC 3.69 L (4.30-5.90) M/uL Hgb 10.6 L (12.0-15.0) g/dL Hct 33.9 L (40.0-54.0) % MCV 92 (80-98) fL MCH 29 (27-31) pg MCHC 31 L (32-36) % Plt Count 228 (150-400) K/uL Neut % (Auto) (36-66) % Lymph % (Auto) (24-44) % [place] % (Auto) (2-6) % Eos % (Auto) (2-4) % Baso % (Auto) (0-1) % Sodium 138 L (140-148) mmol/L Potassium 4.0 (3.6-5.2) mmol/L Chloride 105 (100-108) mmol/L Carbon Dioxide 27 (21-32) mmol/L Anion Gap 10.0 (5.0-14.0) mmol/L BUN 14 (7-18) mg/dL Creatinine 0.9 (0.8-1.3) mg/dL Est Cr Clr Drug Dosing 87.51 mL/min Estimated GFR (MDRD) > 60 (>60) Glucose 198 H (74-106) mg/dL Hemoglobin A1c (4.5-6.2) % Calcium 9.0 (8.5-10.1) mg/dL Phosphorus (2.5-4.9) mg/dL Magnesium (1.8-2.4) mg/dL Ferritin (8-388) ng/ml Total Bilirubin 0.2 (0.2-1.0) mg/dL AST 10 L (15-37) U/L ALT 15 (12-78) U/L Alkaline Phosphatase 101 (46-116) U/L Total Protein 5.9 L (6.4-8.2) g/dL Albumin 2.1 L (3.4-5.0) g/dL Globulin 3.8 H (2.3-3.5) g/dL Albumin/Globulin Ratio 0.6 L (1.2-2.2) Vitamin B12 (193-986) pg/ml Vitamin D 25-Hydroxy 19.4 L (30-100) ng/mL Folate (8.6-58.9) ng/ml 06/12/19 06/12/19 Range/Units 08:42 08:42 WBC (4.5-11.0) K/uL RBC (4.30-5.90) M/uL Hgb (12.0-15.0) g/dL Hct (40.0-54.0) % MCV (80-98) fL MCH (27-31) pg MCHC (32-36) % Plt Count (150-400) K/uL Neut % (Auto) (36-66) % Lymph % (Auto) (24-44) % [place] % (Auto) (2-6) % Eos % (Auto) (2-4) % Baso % (Auto) (0-1) % Sodium (140-148) mmol/L Potassium (3.6-5.2) mmol/L Chloride (100-108) mmol/L Carbon Dioxide (21-32) mmol/L Anion Gap (5.0-14.0) mmol/L BUN (7-18) mg/dL Creatinine (0.8-1.3) mg/dL Est Cr Clr Drug Dosing mL/min Estimated GFR (MDRD) (>60) Glucose (74-106) mg/dL Hemoglobin A1c 9.2 H (4.5-6.2) % Calcium (8.5-10.1) mg/dL Phosphorus 3.7 (2.5-4.9) mg/dL Magnesium 1.6 L (1.8-2.4) mg/dL Ferritin (8-388) ng/ml Total Bilirubin (0.2-1.0) mg/dL AST (15-37) U/L ALT (12-78) U/L Alkaline Phosphatase (46-116) U/L Total Protein (6.4-8.2) g/dL Albumin (3.4-5.0) g/dL Globulin (2.3-3.5) g/dL Albumin/Globulin Ratio (1.2-2.2) Vitamin B12 (193-986) pg/ml Vitamin D 25-Hydroxy (30-100) ng/mL Folate (8.6-58.9) ng/ml Clarence Results Last 24 Hours: Microbiology 06/11/19 02:10 Aerobic Blood Culture - Preliminary Blood - Venous - Iv Start NO GROWTH AFTER 1 DAY Anaerobic Blood Culture - Preliminary NO GROWTH AFTER 1 DAY 06/11/19 02:10 Aerobic Blood Culture - Preliminary Blood - Arm, Right NO GROWTH AFTER 1 DAY Anaerobic Blood Culture - Preliminary NO GROWTH AFTER 1 DAY Med Orders - Current: Current Medications Hydrocodone Bitart/Acetaminophen ([place] 325-5 Mg) 0 tab PO Q4H PRN PRN Reason: Pain Last Admin: 06/12/19 11:50 Dose: 2 tab Aspirin (Halfprin) 81 mg PO DAILY [facility] Last Admin: 06/12/19 09:12 Dose: 81 mg Doxepin HCl (Sinequan) 50 mg PO BEDTIME [facility] Last Admin: 06/11/19 21:19 Dose: 50 mg Duloxetine HCl (Cymbalta) 30 mg PO BID [facility] Last Admin: 06/12/19 09:11 Dose: 30 mg Furosemide (Lasix) 20 mg PO BIDDIURETIC [facility] Last Admin: 06/12/19 09:11 Dose: 20 mg Glipizide (Glucotrol) 20 mg PO BIDAC [facility] Sodium Chloride (Normal Saline) 1,000 mls @ 150 mls/hr IV ASDIRECTED [facility] Last Admin: 06/12/19 09:21 Dose: 150 mls/hr Cefoxitin Sodium 2 gm/ Sodium (Chloride) 50 mls @ 100 mls/hr IV Q6H [facility] Last Admin: 06/12/19 05:35 Dose: 100 mls/hr Insulin Human Lispro (Humalog) 0 unit SUBCUT QIDACANDBED [facility]; Protocol Last Admin: 06/12/19 11:53 Dose: 1 unit Lidocaine (Lidoderm 5%) 1,400 mg TRDERM DAILY [facility] Last Admin: 06/12/19 09:19 Dose: 700 mg Lisinopril (Prinivil) 10 mg PO DAILY [facility] Last Admin: 06/12/19 09:11 Dose: 10 mg Loratadine (Claritin) 10 mg PO DAILY [facility] Last Admin: 06/12/19 09:10 Dose: 10 mg Lovastatin (Mevacor) 20 mg PO BEDTIME [facility] Last Admin: 06/11/19 21:19 Dose: 20 mg Methimazole (Methimazole) 10 mg PO DAILY [facility] Last Admin: 06/12/19 09:11 Dose: 10 mg Metoprolol Tartrate (Lopressor) 25 mg PO BIDPC [facility] Last Admin: 06/12/19 09:12 Dose: 25 mg Mirtazapine (Remeron) 0 mg PO BEDTIME [facility] Miscellaneous Information (Remove Patch) 2 ea TRDERM BEDTIME [facility] Last Admin: 06/11/19 21:32 Dose: Not Given Pramipexole Dihydrochloride (Mirapex) 1 mg PO BID [facility] Last Admin: 06/12/19 09:10 Dose: 1 mg Sodium Chloride (Saline Flush) 10 ml FLUSH ASDIRECTED PRN PRN Reason: Keep Vein Open Tizanidine HCl (Zanaflex) 4 mg PO TID PRN PRN Reason: MUSCLE SPASMS Discontinued Medications Cefoxitin Sodium (Mefoxin) 1 gm IVPUSH ONETIME ONE Stop: 06/11/19 01:55 Last Admin: 06/11/19 02:14 Dose: 1 gm Diphtheria/Tetanus/Acell Pertussis (Adacel) 0.5 ml IM .ONCE ONE Stop: 06/12/19 10:01 Last Admin: 06/12/19 11:56 Dose: 0.5 ml Gadoteridol (Prohance) 20 ml IV . DIRECTED [facility] Stop: 06/11/19 15:00 Last Admin: 06/11/19 13:59 Dose: 20 ml Glipizide (Glucotrol) 10 mg PO BIDAC [facility] Last Admin: 06/12/19 09:10 Dose: 10 mg Sodium Chloride (Normal Saline) 1,000 mls @ 150 mls/hr IV .Q6H40M [facility] Last Admin: 06/11/19 05:35 Dose: Not Given Cefoxitin Sodium 1 gm/ Sodium (Chloride) 50 mls @ 100 mls/hr IV Q12H [facility] Lisinopril (Prinivil) 10 mg PO ONETIME ONE Stop: 06/11/19 05:31 Last Admin: 06/11/19 05:34 Dose: 10 mg Metoprolol Tartrate (Lopressor) 25 mg PO ONETIME ONE Stop: 06/11/19 05:24 Last Admin: 06/11/19 05:34 Dose: 25 mg Metoprolol Tartrate (Lopressor) 25 mg PO ONETIME ONE Stop: 06/11/19 05:31 Last Admin: 06/11/19 05:33 Dose: Not Given Mirtazapine (Remeron) 0.5 - 1 mg PO BEDTIME [facility] Last Admin: 06/11/19 21:34 Dose: 15 mg Morphine Sulfate (Morphine) 2 mg IVPUSH Q1H PRN PRN Reason: Pain Last Admin: 06/11/19 15:56 Dose: 2 mg - Exam General: Alert, Oriented Lungs: Clear to Auscultation, Normal Respiratory Effort Cardiovascular: Regular Rate, Regular Rhythm GI/Abdominal Exam: Soft, Non-Tender Physical Findings Comments:: Great toe right foot continues to be edematous, draining of thick purulent fluid warm to the touch - Problem List & Annotations (1) Osteomyelitis of great toe of right foot SNOMED Code(s): 443235438, 460663399, 4725406826225074 Code(s): M86.9 - OSTEOMYELITIS, UNSPECIFIED Status: Acute Priority: High Current Visit: Yes (2) Cellulitis in diabetic foot SNOMED Code(s): 871975820 Code(s): E11.628 - TYPE 2 DIABETES MELLITUS WITH OTHER SKIN COMPLICATIONS; L03.119 - CELLULITIS OF UNSPECIFIED PART OF LIMB Status: Acute Priority: High Current Visit: Yes (3) Diabetes mellitus SNOMED Code(s): 80118959 Code(s): E11.9 - TYPE 2 DIABETES MELLITUS WITHOUT COMPLICATIONS Status: Chronic Priority: Medium Current Visit: No Qualifiers: Diabetes mellitus type: type 2 Diabetes mellitus senior care insulin use: with terminal manager use Diabetes mellitus complication status: with skin complications Diabetes mellitus complication detail: with foot ulcer Qualified Code(s): E11.621 - Type 2 diabetes mellitus with foot ulcer; L97.509 - Non-pressure chronic ulcer of other part of unspecified foot with unspecified severity; Z79.4 - longterm (current) use of insulin - Problem List Review Problem List Initiated/Reviewed/Updated: Yes - My Orders Last 24 Hours: My Active Orders 06/11/19 12:30 cefOXitin [Mefoxin] 2 gm Sodium Chloride 0.9% [Normal Saline] 50 ml IV Q6H 06/11/19 12:49 Consult to Physician [CONS] Routine 06/11/19 12:51 Notify Provider Consults [RC] ASDIRECTED 06/11/19 16:13 Acetaminophen/HYDROcodone [[place] 325-5 MG] See Dose Instructions PO Q4H PRN 06/11/19 17:00 Insulin Lispro [HumaLOG] See Protocol SUBCUT QIDACANDBED 06/12/19 16:30 GLUCOSE POC LAB TO COLLECT [POC] QIDACANDBED glipiZIDE [Glucotrol] 20 mg PO BIDAC 06/12/19 21:00 GLUCOSE POC LAB TO COLLECT [POC] QIDACANDBED 06/13/19 05:11 BASIC METABOLIC PANEL,BMP [CHEM] AM CBC WITH AUTO DIFF [HEME] AM - Plan Plan:: ASSESSMENT AND PLAN Diabetic foot ulcer with local cellulitis and osteomyelitis of the great toe right foot -Continue IV antibiotics of Mefoxin -Blood cultures pending no growth day 1 -Surgical consult today -MRI reveals osteomyelitis in distal and proximal phalangeal -Ankle-brachial index consistent with multiphasic flow Diabetes mellitus type 2 -Suboptimal control blood sugars ranging 180-190 on requiring additional insulin , on glipizide 10 mg by mouth twice a day Will increase this to 20 mg by mouth twice a day Status post gastric bypass -Care per surgical team MAINTENANCE ISSUES -DVT prophylaxis; mechanical device -GI prophylaxis; not indicated at this time -Elliott catheter; not indicated at this time ] -Nutrition; carb counting diet -Nicotine dependence; not required CODE STATUS-FULL CODE ADMISSION patient will remain on inpatient status expect he will be in hospital for an extended stay with the possibility of amputation per surgery DISPOSITION - anticipate discharge to home after the hospital stay. PRIMARY CARE PROVIDER - Tc Guzman Officer
[2019-06-12] MEDS: fentaNYL 100 MCG/2 ML SDV IVPUSH PRN (20:35)
[2019-06-12] MEDS: Mirtazapine 15 MG Tab PO SCH (20:36)
[2019-06-12] MEDS: Doxepin 25 MG Cap PO SCH (20:36)
[2019-06-13] MEDS: cefOXitin 2 GM in Sodium Chloride 0.9% 50 ML IV SCH ×4 (00:10→18:08)
[2019-06-13] MEDS: fentaNYL 100 MCG/2 ML SDV IVPUSH PRN ×6 (03:42→21:07)
--- NOTE | 2019-06-13 08:10 | PN ---
DATE OF SERVICE: 06/13/2019 SUBJECTIVE: The patient is unchanged today. Pain is well controlled. No nausea, vomiting, shortness of breath, or chest pain. OBJECTIVE: VITAL SIGNS: Stable. SKIN: Dressing intact. ASSESSMENT AND PLAN: The patient will be scheduled for ray amputation of the great toe today. We discussed risks, benefits, alternatives, and limitations of this plan. Please see consultation from yesterday for further details. Ronen Oconnell MD /[id number]
[2019-06-13] MEDS: Metoprolol Tartrate 25 MG Tab PO SCH ×2 (08:20→18:13)
[2019-06-13] MEDS: Lisinopril 10 MG Tab PO SCH (08:20)
[2019-06-13] MEDS: Insulin Lispro 100 Unit/ML 3 ML KwikPen SUBCUT SCH ×4 (08:23→21:08)
[2019-06-13] MEDS ORDERED: Midazolam 1 MG/ML 2 ML SDV ONE (08:51)
[2019-06-13] MEDS ORDERED: fentaNYL 100 MCG/2 ML SDV ONE (08:51)
[2019-06-13] MEDS ORDERED: Propofol 200 MG/20 ML SDV ONE ×2 (08:51→09:32)
[2019-06-13] MEDS ORDERED: Bupivacaine 0.5% 50 ML MDV ONE (08:54)
[2019-06-13] MEDS ORDERED: Bupivacaine 0.5% 30 ML SDV ONE (08:56)
[2019-06-13] MEDS ORDERED: Lactated Ringers 1,000 ML ONE (09:16)
[2019-06-13] MEDS ORDERED: MVI, Adult with Vitamin K 10 ML, Thiamine 100 MG, Magnesium Sulfate 2 GM, Folic Acid 1 ... IV ONE ×10 (10:00→16:00)
[2019-06-13] MEDS: Furosemide 20 MG Tab PO SCH ×2 (10:59→15:42)
[2019-06-13] MEDS: Methimazole 5 MG Tab PO SCH (10:59)
[2019-06-13] MEDS: Pramipexole 0.5 MG Tab PO SCH ×2 (10:59→21:10)
[2019-06-13] MEDS: DULoxetine 30 MG Cap PO SCH ×2 (10:59→21:09)
[2019-06-13] MEDS: Loratadine 10 MG Tab PO SCH (11:00)
[2019-06-13] MEDS: glipiZIDE 5 MG Tab PO SCH ×2 (11:00→15:42)
[2019-06-13] MEDS: Aspirin 81 MG Tab.EC PO SCH (11:00)
[2019-06-13] MEDS: Magnesium Sulfate/Water 2 GM in Premix Bag 1 BAG IV SCH ×3 (11:01→21:13)
[2019-06-13] MEDS: Lidocaine 5% 700 MG Patch TRDERM SCH (12:29)
--- NOTE | 2019-06-13 12:43 | PN ---
DATE OF SERVICE: 06/13/2019 SUBJECTIVE: Bora will be going to surgery to have a toe amputation today. His vital signs have been stable. Oral intake was 2560, output was not recorded. REVIEW OF SYSTEMS: Remainder of review of systems negative for any pertinent positives and negatives. OBJECTIVE: GENERAL: Bora Padilla is a 53-year-old male. He is alert and orientated. VITAL SIGNS: TPR 96.9, 63, 16, blood pressure 160/56. HEENT: Negative. NECK: Supple. HEART: Regular rate and rhythm. LUNGS: Clear. ABDOMEN: Negative. EXTREMITIES: Right toe and foot, no change. Redness continues to go onto the anterior tibial area. LABORATORY DATA: His lab results: Hemoglobin was 10.1, potassium was good at 4, glucose 143. Hemoglobin A1c was 9.2, B12 187, vitamin D 19.4, folate is 18.5, and ferritin 133. ASSESSMENT: 1. Cellulitis, right foot. 2. Type 2 diabetes. 3. Peripheral neuropathy. 4. Vitamin D deficiency. 5. Vitamin B12 deficiency. 6. Status post Eliza-en-Y gastric bypass surgery, noncompliance with followup, unspecified surgical malabsorption, B12 deficiency. PLAN: Rx magnesium 2 g IV q. 72 hours, lactated Ringer's with added multivitamin ordered. He will need B12 and vitamin D. These will be ordered tomorrow postoperatively pending his condition. We will evaluate p.r.n. or in a.m. Iliana Paulson PA-C /[id number]
[2019-06-13] MEDS ORDERED: Bisacodyl 5 MG Tab PO PRN (13:11)
--- NOTE | 2019-06-13 13:20 | PCM.PN ---
- General Info Date of Service: 06/13/19 Admission Dx/Problem (Free Text): Diabetic foot ulcer Subjective Update: Underwent amputation of the great toe right foot this morning. He states his pain is controlled he's been out of surgery for the last couple hours no nausea vomiting shortness of breath or chest pain he is tolerating diet, diabetic medication has been increased from 20 mg per day to 40 mg daily - Patient Data Vitals - Most Recent: Last Vital Signs Temp 96.3 F 06/13/19 10:25 Pulse 67 06/13/19 12:00 Resp 16 06/13/19 12:00 BP 152/69 H 06/13/19 12:00 Pulse Ox 95 06/13/19 12:00 Weight - Most Recent: 99.609 kg I&O - Last 24 Hours: Intake & Output 06/12/19 06/13/19 06/13/19 22:59 06:59 14:59 Intake Total 1461 1980 50 Balance 1461 1980 50 Lab Results Last 24 Hours: Laboratory Results - last 24 hr 06/13/19 06/13/19 Range/Units 04:30 04:33 WBC 5.2 (4.5-11.0) K/uL RBC 3.56 L (4.30-5.90) M/uL Hgb 10.1 L (12.0-15.0) g/dL Hct 32.6 L (40.0-54.0) % MCV 92 (80-98) fL MCH 28 (27-31) pg MCHC 31 L (32-36) % Plt Count 215 (150-400) K/uL Neut % (Auto) 54 (36-66) % Lymph % (Auto) 35 (24-44) % [place] % (Auto) 10 H (2-6) % Eos % (Auto) 1 L (2-4) % Baso % (Auto) 0 (0-1) % Sodium 139 L (140-148) mmol/L Potassium 4.0 (3.6-5.2) mmol/L Chloride 106 (100-108) mmol/L Carbon Dioxide 25 (21-32) mmol/L Anion Gap 12.0 (5.0-14.0) mmol/L BUN 12 (7-18) mg/dL Creatinine 0.9 (0.8-1.3) mg/dL Est Cr Clr Drug Dosing 87.51 mL/min Estimated GFR (MDRD) > 60 (>60) Glucose 143 H (74-106) mg/dL Calcium 8.7 (8.5-10.1) mg/dL Clarence Results Last 24 Hours: Microbiology 06/11/19 02:10 Aerobic Blood Culture - Preliminary Blood - Venous - Iv Start NO GROWTH AFTER 2 DAYS Anaerobic Blood Culture - Preliminary NO GROWTH AFTER 2 DAYS 06/11/19 02:10 Aerobic Blood Culture - Preliminary Blood - Arm, Right NO GROWTH AFTER 2 DAYS Anaerobic Blood Culture - Preliminary NO GROWTH AFTER 2 DAYS Med Orders - Current: Current Medications Hydrocodone Bitart/Acetaminophen ([place] 325-5 Mg) 0 tab PO Q4H PRN PRN Reason: Pain Last Admin: 06/12/19 17:34 Dose: 2 tab Aspirin (Halfprin) 81 mg PO DAILY [facility] Last Admin: 06/13/19 11:00 Dose: 81 mg Bisacodyl (Dulcolax) 10 mg PO DAILY PRN PRN Reason: Constipation Doxepin HCl (Sinequan) 50 mg PO BEDTIME [facility] Last Admin: 06/12/19 20:36 Dose: 50 mg Duloxetine HCl (Cymbalta) 30 mg PO BID [facility] Last Admin: 06/13/19 10:59 Dose: 30 mg Fentanyl (Sublimaze) 50 mcg IVPUSH Q2H PRN PRN Reason: Pain (severe 7-10) Last Admin: 06/13/19 12:29 Dose: 50 mcg Furosemide (Lasix) 20 mg PO BIDDIURETIC [facility] Last Admin: 06/13/19 10:59 Dose: 20 mg Glipizide (Glucotrol) 20 mg PO BIDAC [facility] Last Admin: 06/13/19 11:00 Dose: 20 mg Cefoxitin Sodium 2 gm/ Sodium (Chloride) 50 mls @ 100 mls/hr IV Q6H [facility] Last Admin: 06/13/19 05:50 Dose: 100 mls/hr Sodium Chloride (Normal Saline) 1,000 mls @ 100 mls/hr IV ASDIRECTED [facility] Last Admin: 06/13/19 00:00 Dose: 100 mls/hr Magnesium Sulfate 2 gm/ Premix 50 mls @ 25 mls/hr IV Q6H [facility] Stop: 06/16/19 05:59 Last Admin: 06/13/19 11:01 Dose: 25 mls/hr Multivitamins/Minerals 10 ml/Thiamine HCl 100 mg/ Magnesium Sulfate 2 gm/ Folic Acid 1 mg / Lactated Ringer's 1,015.2 mls @ 200 mls/hr IV ONETIME ONE Stop: 06/13/19 21:04 Insulin Human Lispro (Humalog) 0 unit SUBCUT QIDACANDBED [facility]; Protocol Last Admin: 06/13/19 12:18 Dose: Not Given Lidocaine (Lidoderm 5%) 1,400 mg TRDERM DAILY [facility] Last Admin: 06/13/19 12:29 Dose: Not Given Lisinopril (Prinivil) 10 mg PO DAILY [facility] Last Admin: 06/13/19 08:20 Dose: 10 mg Loratadine (Claritin) 10 mg PO DAILY [facility] Last Admin: 06/13/19 11:00 Dose: 10 mg Lovastatin (Mevacor) 20 mg PO BEDTIME [facility] Last Admin: 06/12/19 20:36 Dose: 20 mg Methimazole (Methimazole) 10 mg PO DAILY [facility] Last Admin: 06/13/19 10:59 Dose: 10 mg [facility]rol[facility] Last Admin: 06/13/19 08:20 Dose: 25 mg Mirtazapine (Remeron) 0 mg PO BEDTIME [facility] Last Admin: 06/12/19 20:36 Dose: 15 mg Miscellaneous Information (Remove Patch) 2 ea TRDERM BEDTIME [facility] Last Admin: 06/12/19 20:39 Dose: Not Given Pramipexole Dihydrochloride (Mirapex) 1 mg PO BID [facility] Last Admin: 06/13/19 10:59 Dose: 1 mg Sodium Chloride (Saline Flush) 10 ml FLUSH ASDIRECTED PRN PRN Reason: Keep Vein Open Tizanidine HCl (Zanaflex) 4 mg PO TID PRN PRN Reason: MUSCLE SPASMS Discontinued Medications Bupivacaine HCl (Marcaine 0.5%) Confirm Administered Dose 50 ml .ROUTE .STK-MED ONE Stop: 06/13/19 08:55 Bupivacaine HCl (Marcaine 0.5%) Confirm Administered Dose 30 ml .ROUTE .STK-MED ONE Stop: 06/13/19 08:57 Cefoxitin Sodium (Mefoxin) 1 gm IVPUSH ONETIME ONE Stop: 06/11/19 01:55 Last Admin: 06/11/19 02:14 Dose: 1 gm Diphtheria/Tetanus/Acell Pertussis (Adacel) 0.5 ml IM .ONCE ONE Stop: 06/12/19 10:01 Last Admin: 06/12/19 11:56 Dose: 0.5 ml Fentanyl (Sublimaze) 50 mcg IVPUSH Q6H PRN PRN Reason: Pain (severe 7-10) Last Admin: 06/12/19 16:11 Dose: 50 mcg Fentanyl (Sublimaze) Confirm Administered Dose 100 mcg .ROUTE .STK-MED ONE Stop: 06/13/19 08:52 Gadoteridol (Prohance) 20 ml IV . DIRECTED [facility] Stop: 06/11/19 15:00 Last Admin: 06/11/19 13:59 Dose: 20 ml Glipizide (Glucotrol) 10 mg PO BIDAC [facility] Last Admin: 06/12/19 09:10 Dose: 10 mg Sodium Chloride (Normal Saline) 1,000 mls @ 150 mls/hr IV .Q6H40M [facility] Last Admin: 06/11/19 05:35 Dose: Not Given Sodium Chloride (Normal Saline) 1,000 mls @ 150 mls/hr IV ASDIRECTED [facility] Last Admin: 06/12/19 09:21 Dose: 150 mls/hr Cefoxitin Sodium 1 gm/ Sodium (Chloride) 50 mls @ 100 mls/hr IV Q12H [facility] Lactated Ringer's (Ringers, Lactated) Confirm Administered Dose 1,000 mls @ as directed .ROUTE .STK-MED ONE Stop: 06/13/19 09:17 Lisinopril (Prinivil) 10 mg PO ONETIME ONE Stop: 06/11/19 05:31 Last Admin: 06/11/19 05:34 Dose: 10 mg Metoprolol Tartrate (Lopressor) 25 mg PO ONETIME ONE Stop: 06/11/19 05:24 Last Admin: 06/11/19 05:34 Dose: 25 mg Metoprolol Tartrate (Lopressor) 25 mg PO ONETIME ONE Stop: 06/11/19 05:31 Last Admin: 06/11/19 05:33 Dose: Not Given Midazolam HCl (Versed 1 Mg/Ml) Confirm Administered Dose 2 mg .ROUTE .STK-MED ONE Stop: 06/13/19 08:52 Mirtazapine (Remeron) 0.5 - 1 mg PO BEDTIME [facility] Last Admin: 06/11/19 21:34 Dose: 15 mg Morphine Sulfate (Morphine) 2 mg IVPUSH Q1H PRN PRN Reason: Pain Last Admin: 06/11/19 15:56 Dose: 2 mg Propofol (Diprivan 20 Ml) Confirm Administered Dose 200 mg .ROUTE .STK-MED ONE Stop: 06/13/19 08:52 Propofol (Diprivan 20 Ml) Confirm Administered Dose 200 mg .ROUTE .STK-MED ONE Stop: 06/13/19 09:33 - Exam Quality Assessment: No: Supplemental Oxygen General: Alert, Oriented Lungs: Clear to Auscultation, Normal Respiratory Effort Cardiovascular: Regular Rate, Regular Rhythm GI/Abdominal Exam: Soft, Non-Tender Extremities: Other (Surgical dressing clean dry and intact) - Problem List & Annotations (1) Osteomyelitis of great toe of right foot SNOMED Code(s): 969455766, 708310017, [id number] Code(s): M86.9 - OSTEOMYELITIS, UNSPECIFIED Status: Acute Priority: High Current Visit: Yes (2) Cellulitis in diabetic foot SNOMED Code(s): 292085027 Code(s): E11.628 - TYPE 2 DIABETES MELLITUS WITH OTHER SKIN COMPLICATIONS; L03.119 - CELLULITIS OF UNSPECIFIED PART OF LIMB Status: Acute Priority: High Current Visit: Yes (3) Diabetes mellitus type 2 with complications SNOMED Code(s): 75221528, 350327226 Code(s): E11.8 - TYPE 2 DIABETES MELLITUS WITH UNSPECIFIED COMPLICATIONS Status: Chronic Priority: Medium Current Visit: Yes - Problem List Review Problem List Initiated/Reviewed/Updated: Yes - My Orders Last 24 Hours: My Active Orders 06/12/19 16:30 glipiZIDE [Glucotrol] 20 mg PO BIDAC 06/13/19 12:14 Central Line Assessment [RC] QSHIFT Central Line PICC Insertion [Central Venous Line Insertion] [OM.PC] Routine 06/13/19 13:11 OT Evaluation and Treatment [CONS] Routine PT Evaluation and Treatment [CONS] Routine Bisacodyl [Dulcolax] 10 mg PO DAILY PRN 06/13/19 16:30 GLUCOSE POC LAB TO COLLECT [POC] QIDACANDBED 06/13/19 21:00 GLUCOSE POC LAB TO COLLECT [POC] QIDACANDBED - Plan Plan:: ASSESSMENT AND PLAN Postop day great toe amputation right foot secondary to local cellulitis with osteomyelitis of the distal and proximal phalanges -Continue IV antibiotics of Mefoxin will need antibiotics 6-8 weeks in time PICC line ordered -Blood cultures pending no growth day 2 Diabetes mellitus type 2 -After increase of glipizide to 20 mg by mouth twice a day blood sugars now range around the 120 Kai Status post gastric bypass -Care per surgical team MAINTENANCE ISSUES -DVT prophylaxis; mechanical device -GI prophylaxis; not indicated at this time -Elliott catheter; not indicated at this time ] -Nutrition; carb counting diet -Nicotine dependence; not required CODE STATUS-FULL CODE ADMISSION patient will remain on inpatient status expect he will be in hospital for an extended stay secondary to surgical procedure DISPOSITION - anticipate discharge to home after the hospital stay. PRIMARY CARE PROVIDER - Tc Guzman Officer
[2019-06-13] MEDS: Acetaminophen/HYDROcodone 325-5 MG Tab PO PRN ×2 (16:05→20:26)
[2019-06-13] MEDS: Doxepin 25 MG Cap PO SCH (21:11)
[2019-06-13] MEDS: Mirtazapine 15 MG Tab PO SCH (21:17)
[2019-06-13] MEDS: Sodium Chloride 0.9% 1,000 ML IV SCH ×2 (23:18)
[2019-06-14] MEDS: Acetaminophen/HYDROcodone 325-5 MG Tab PO PRN ×5 (00:39→20:43)
[2019-06-14] MEDS: cefOXitin 2 GM in Sodium Chloride 0.9% 50 ML IV SCH ×4 (00:40→18:19)
[2019-06-14] MEDS: fentaNYL 100 MCG/2 ML SDV IVPUSH PRN ×7 (00:49→20:44)
[2019-06-14] MEDS: Magnesium Sulfate/Water 2 GM in Premix Bag 1 BAG IV SCH ×4 (04:31→21:54)
[2019-06-14] MEDS: Insulin Lispro 100 Unit/ML 3 ML KwikPen SUBCUT SCH ×4 (08:02→21:52)
[2019-06-14] MEDS: Metoprolol Tartrate 25 MG Tab PO SCH ×2 (08:11→17:28)
[2019-06-14] MEDS: glipiZIDE 5 MG Tab PO SCH ×2 (08:11→16:10)
[2019-06-14] MEDS: Furosemide 20 MG Tab PO SCH ×2 (08:11→13:10)
[2019-06-14] MEDS: Pramipexole 0.5 MG Tab PO SCH ×2 (09:17→20:41)
[2019-06-14] MEDS: Calcium Carbonate 500 MG Tab.Chew PO SCH ×2 (09:17→20:42)
[2019-06-14] MEDS: Lisinopril 10 MG Tab PO SCH (09:18)
[2019-06-14] MEDS: Multivitamins with Iron Tab.Chew CHEW SCH ×2 (09:18→20:41)
[2019-06-14] MEDS: Methimazole 5 MG Tab PO SCH (09:18)
[2019-06-14] MEDS: Loratadine 10 MG Tab PO SCH (09:19)
[2019-06-14] MEDS: Lidocaine 5% 700 MG Patch TRDERM SCH (09:19)
[2019-06-14] MEDS: Aspirin 81 MG Tab.EC PO SCH (09:19)
[2019-06-14] MEDS: DULoxetine 30 MG Cap PO SCH ×2 (09:19→20:41)
[2019-06-14] MEDS: Cyanocobalamin (Vitamin B12) 1,000 MCG/ML SDV IM SCH (09:19)
[2019-06-14] MEDS: Sodium Chloride 0.9% 1,000 ML IV SCH ×2 (10:04→21:27)
--- NOTE | 2019-06-14 10:11 | PN ---
DATE OF SERVICE: 06/14/2019 SUBJECTIVE: Bora is postoperative day #1 following amputation of right great toe. He states his pain is controlled. He is on a consistent carb diet and states he will be able to start his vitamins. Oral intake was 2280. He has not been recording his urine output. OBJECTIVE: GENERAL: Bora Padilla is a 53-year-old male. VITAL SIGNS: TPR is 96.6, 59, 18, blood pressure 137/63. HEENT: Negative. NECK: Supple. HEART: Regular rate and rhythm. LUNGS: Clear. ABDOMEN: Soft, nontender. EXTREMITIES: Right lower extremity, dressings dry and intact. ASSESSMENT: 1. 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 2. Diabetes type 2, uncontrolled. 3. Peripheral neuropathy. 4. Vitamin D deficiency. 5. Vitamin B12 deficiency. 6. Status post Eliza-en-Y gastric bypass surgery, noncompliance with followup. 7. Unspecified surgical malabsorption. 8. Low magnesium. PLAN: 1. B complex 100 mg p.o. daily. 2. Vitamin B12 1000 mcg IM daily for 5 days. 3. Vitamin D 50,000 daily while he is in the hospital, then on discharge will go 3 times a week. 4. Multivitamin chewable with iron b.i.d. 5. Tums 500 mg b.i.d. 6. Protein supplements ordered q.i.d. and at bedtime. 7. We will evaluate p.r.n. or in a.m. . Iliana Paulson PA-C /[id number]
[2019-06-14] MEDS: Cholecalciferol (Vitamin D3) 50,000 Unit Cap PO SCH (10:40)
--- NOTE | 2019-06-14 10:50 | PN ---
DATE OF SERVICE: 06/14/2019 SUBJECTIVE: The patient is doing very well. Pain is just still an issue. We will have ibuprofen scheduled. He is having no nausea, vomiting, shortness of breath, or chest pain. Having bowel movements. OBJECTIVE: VITAL SIGNS: Stable. He is afebrile per nursing report. CARDIOVASCULAR: Regular rhythm and rate. RESPIRATORY: Lungs are clear to auscultation bilaterally. EXTREMITIES: Dressings are intact. ASSESSMENT: Status post toe amputation. PLAN: We will continue to work on outpatient antibiotics. We will work on activity with Physical Therapy. He will have a Darco shoe. He will get set for a knee scooter. We will re-evaluate tomorrow morning. Ronen Oconnell MD /[phone]
[2019-06-14] MEDS: Ibuprofen 600 MG Tab PO SCH ×2 (11:13→18:19)
--- NOTE | 2019-06-14 13:31 | PCM.CONSN ---
- General Info Date of Service: 06/14/19 Admission Dx/Problem (Free Text): Diabetic foot ulcer Subjective Update: Postop day 1 doing well tolerating diet he is nonweightbearing pain is controlled blood sugars have improved with increased medication denies any nausea vomiting shortness breath or chest pain Functional Status: Reports: Pain Controlled - Review of Systems General: Reports: No Symptoms Pulmonary: Reports: No Symptoms Cardiovascular: Reports: No Symptoms Gastrointestinal: Reports: No Symptoms - Patient Data Vitals - Most Recent: Last Vital Signs Temp 97.4 F 06/14/19 11:16 Pulse 70 06/14/19 11:16 Resp 16 06/14/19 11:16 BP 147/68 H 06/14/19 11:16 Pulse Ox 94 L 06/14/19 11:16 Weight - Most Recent: 99.609 kg I&O - Last 24 Hours: Intake & Output 06/13/19 06/14/19 06/14/19 22:59 06:59 14:59 Intake Total 3104 1648 700 Balance 3104 1648 700 Lab Results Last 24 Hours: Laboratory Results - last 24 hr 06/14/19 06/14/19 Range/Units 09:37 09:37 WBC 4.8 (4.5-11.0) K/uL RBC 3.57 L (4.30-5.90) M/uL Hgb 10.3 L (12.0-15.0) g/dL Hct 32.4 L (40.0-54.0) % MCV 91 (80-98) fL MCH 29 (27-31) pg MCHC 32 (32-36) % Plt Count 197 (150-400) K/uL Neut % (Auto) 69 H (36-66) % Lymph % (Auto) 20 L (24-44) % [place] % (Auto) 10 H (2-6) % Eos % (Auto) 1 L (2-4) % Baso % (Auto) 0 (0-1) % Sodium 136 L (140-148) mmol/L Potassium 4.4 (3.6-5.2) mmol/L Chloride 103 (100-108) mmol/L Carbon Dioxide 27 (21-32) mmol/L Anion Gap 10.4 (5.0-14.0) mmol/L BUN 10 (7-18) mg/dL Creatinine 0.9 (0.8-1.3) mg/dL Est Cr Clr Drug Dosing 87.51 mL/min Estimated GFR (MDRD) > 60 (>60) Glucose 173 H (74-106) mg/dL Calcium 8.4 L (8.5-10.1) mg/dL Clarence Results Last 24 Hours: Microbiology 06/11/19 02:10 Aerobic Blood Culture - Preliminary Blood - Arm, Right NO GROWTH AFTER 3 DAYS Anaerobic Blood Culture - Preliminary NO GROWTH AFTER 3 DAYS 06/11/19 02:10 Aerobic Blood Culture - Preliminary Blood - Venous - Iv Start NO GROWTH AFTER 3 DAYS Anaerobic Blood Culture - Preliminary NO GROWTH AFTER 3 DAYS Med Orders - Current: Current Medications Hydrocodone Bitart/Acetaminophen ([place] 325-5 Mg) 0 tab PO Q4H PRN PRN Reason: Pain Last Admin: 06/14/19 13:11 Dose: 2 tab Aspirin (Halfprin) 81 mg PO DAILY [facility] Last Admin: 06/14/19 09:19 Dose: 81 mg Bisacodyl (Dulcolax) 10 mg PO DAILY PRN PRN Reason: Constipation Calcium Carbonate/Glycine (Tums) 500 mg PO BID [facility] Last Admin: 06/14/19 09:17 Dose: 500 mg Cholecalciferol (Vitamin D3) 50,000 unit PO DAILY [facility] Last Admin: 06/14/19 10:40 Dose: 50,000 unit Cyanocobalamin (Vitamin B12) 1,000 mcg IM DAILY [facility] Last Admin: 06/14/19 09:19 Dose: 1,000 mcg Doxepin HCl (Sinequan) 50 mg PO BEDTIME [facility] Last Admin: 06/13/19 21:11 Dose: 50 mg Duloxetine HCl (Cymbalta) 30 mg PO BID [facility] Last Admin: 06/14/19 09:19 Dose: 30 mg Fentanyl (Sublimaze) 50 mcg IVPUSH Q2H PRN PRN Reason: Pain (severe 7-10) Last Admin: 06/14/19 12:03 Dose: 50 mcg Furosemide (Lasix) 20 mg PO BIDDIURETIC [facility] Last Admin: 06/14/19 13:10 Dose: 20 mg Glipizide (Glucotrol) 20 mg PO BIDAC [facility] Last Admin: 06/14/19 08:11 Dose: 20 mg Cefoxitin Sodium 2 gm/ Sodium (Chloride) 50 mls @ 100 mls/hr IV Q6H [facility] Last Admin: 06/14/19 12:17 Dose: 100 mls/hr Sodium Chloride (Normal Saline) 1,000 mls @ 100 mls/hr IV ASDIRECTED [facility] Last Admin: 06/14/19 10:04 Dose: 100 mls/hr Magnesium Sulfate 2 gm/ Premix 50 mls @ 25 mls/hr IV Q6H [facility] Stop: 06/16/19 05:59 Last Admin: 06/14/19 09:25 Dose: 25 mls/hr Ibuprofen (Motrin) 600 mg PO Q8H [facility] Last Admin: 06/14/19 11:13 Dose: 600 mg Insulin Human Lispro (Humalog) 0 unit SUBCUT QIDACANDBED [facility]; Protocol Last Admin: 06/14/19 12:04 Dose: Not Given Lidocaine (Lidoderm 5%) 1,400 mg TRDERM DAILY [facility] Last Admin: 06/14/19 09:19 Dose: Not Given Lisinopril (Prinivil) 10 mg PO DAILY [facility] Last Admin: 06/14/19 09:18 Dose: 10 mg Loratadine (Claritin) 10 mg PO DAILY [facility] Last Admin: 06/14/19 09:19 Dose: 10 mg Lovastatin (Mevacor) 20 mg PO BEDTIME [facility] Last Admin: 06/13/19 21:10 Dose: 20 mg Methimazole (Methimazole) 10 mg PO DAILY [facility] Last Admin: 06/14/19 09:18 Dose: 10 mg Metoprolol Tartrate (Lopressor) 25 mg PO BIDPC [facility] Last Admin: 06/14/19 08:11 Dose: 25 mg Mirtazapine (Remeron) 0 mg PO BEDTIME [facility] Last Admin: 06/13/19 21:17 Dose: 15 mg Miscellaneous Information (Remove Patch) 2 ea TRDERM BEDTIME [facility] Last Admin: 06/13/19 21:11 Dose: Not Given Multivitamins/Iron (Child Chew Iron) 1 tab CHEW BID [facility] Last Admin: 06/14/19 09:18 Dose: 1 tab Pramipexole Dihydrochloride (Mirapex) 1 mg PO BID [facility] Last Admin: 06/14/19 09:17 Dose: 1 mg Sodium Chloride (Saline Flush) 10 ml FLUSH ASDIRECTED PRN PRN Reason: Keep Vein Open Thiamine HCl (Vitamin B-1) 100 mg PO BEDTIME [facility] Tizanidine HCl (Zanaflex) 4 mg PO TID PRN PRN Reason: MUSCLE SPASMS Discontinued Medications Bupivacaine HCl (Marcaine 0.5%) Confirm Administered Dose 50 ml .ROUTE .STK-MED ONE Stop: 06/13/19 08:55 Bupivacaine HCl (Marcaine 0.5%) Confirm Administered Dose 30 ml .ROUTE .STK-MED ONE Stop: 06/13/19 08:57 Cefoxitin Sodium (Mefoxin) 1 gm IVPUSH ONETIME ONE Stop: 06/11/19 01:55 Last Admin: 06/11/19 02:14 Dose: 1 gm Diphtheria/Tetanus/Acell Pertussis (Adacel) 0.5 ml IM .ONCE ONE Stop: 06/12/19 10:01 Last Admin: 06/12/19 11:56 Dose: 0.5 ml Fentanyl (Sublimaze) 50 mcg IVPUSH Q6H PRN PRN Reason: Pain (severe 7-10) Last Admin: 06/12/19 16:11 Dose: 50 mcg Fentanyl (Sublimaze) Confirm Administered Dose 100 mcg .ROUTE .STK-MED ONE Stop: 06/13/19 08:52 Gadoteridol (Prohance) 20 ml IV . DIRECTED [facility] Stop: 06/11/19 15:00 Last Admin: 06/11/19 13:59 Dose: 20 ml Glipizide (Glucotrol) 10 mg PO BIDAC [facility] Last Admin: 06/12/19 09:10 Dose: 10 mg Sodium Chloride (Normal Saline) 1,000 mls @ 150 mls/hr IV .Q6H40M [facility] Last Admin: 06/11/19 05:35 Dose: Not Given Sodium Chloride (Normal Saline) 1,000 mls @ 150 mls/hr IV ASDIRECTED [facility] Last Admin: 06/12/19 09:21 Dose: 150 mls/hr Cefoxitin Sodium 1 gm/ Sodium (Chloride) 50 mls @ 100 mls/hr IV Q12H [facility] Multivitamins/Minerals 10 ml/Thiamine HCl 100 mg/ Magnesium Sulfate 2 gm/ Folic Acid 1 mg / Lactated Ringer's 1,015.2 mls @ 200 mls/hr IV ONETIME ONE Stop: 06/13/19 21:04 Last Admin: 06/13/19 15:43 Dose: 200 mls/hr Lactated Ringer's (Ringers, Lactated) Confirm Administered Dose 1,000 mls @ as directed .ROUTE .STK-MED ONE Stop: 06/13/19 09:17 Lisinopril (Prinivil) 10 mg PO ONETIME ONE Stop: 06/11/19 05:31 Last Admin: 06/11/19 05:34 Dose: 10 mg Metoprolol Tartrate (Lopressor) 25 mg PO ONETIME ONE Stop: 06/11/19 05:24 Last Admin: 06/11/19 05:34 Dose: 25 mg Metoprolol Tartrate (Lopressor) 25 mg PO ONETIME ONE Stop: 06/11/19 05:31 Last Admin: 06/11/19 05:33 Dose: Not Given Midazolam HCl (Versed 1 Mg/Ml) Confirm Administered Dose 2 mg .ROUTE .STK-MED ONE Stop: 06/13/19 08:52 Mirtazapine (Remeron) 0.5 - 1 mg PO BEDTIME [facility] Last Admin: 06/11/19 21:34 Dose: 15 mg Morphine Sulfate (Morphine) 2 mg IVPUSH Q1H PRN PRN Reason: Pain Last Admin: 06/11/19 15:56 Dose: 2 mg Propofol (Diprivan 20 Ml) Confirm Administered Dose 200 mg .ROUTE .STK-MED ONE Stop: 06/13/19 08:52 Propofol (Diprivan 20 Ml) Confirm Administered Dose 200 mg .ROUTE .STK-MED ONE Stop: 06/13/19 09:33 - Exam Quality Assessment: No: Supplemental Oxygen General: Alert, Oriented Consult PN Assessment/Plan Procedures: Procedures BLOOD TYPING SEROLOGIC ABO (12/01/16) BLOOD TYPING SEROLOGIC RH(D) (12/01/16) CT HEAD/BRAIN W/O DYE (01/10/17) CT NECK SPINE W/O DYE (01/10/17) EMERGENCY DEPT VISIT (06/22/18) RBC ANTIBODY SCREEN (12/01/16) ROUTINE VENIPUNCTURE (12/01/16) X-RAY EXAM UNILAT RIBS/CHEST (06/22/18) (1) Osteomyelitis of great toe of right foot SNOMED Code(s): 441808420, 227365847, 8454518218655286 Code(s): M86.9 - OSTEOMYELITIS, UNSPECIFIED Priority: High Current Visit : Yes (2) Cellulitis in diabetic foot SNOMED Code(s): 279201404 Code(s): E11.628 - TYPE 2 DIABETES MELLITUS WITH OTHER SKIN COMPLICATIONS; L03.119 - CELLULITIS OF UNSPECIFIED PART OF LIMB Priority: High Current Visit: Yes (3) Diabetes mellitus type 2 with complications SNOMED Code(s): 18813384, 735180994 Code(s): E11.8 - TYPE 2 DIABETES MELLITUS WITH UNSPECIFIED COMPLICATIONS Priority: Medium Current Visit: Yes Problem List Initiated/Reviewed/Updated: Yes My Orders Last 24 Hours: My Active Orders 06/13/19 13:11 OT Evaluation and Treatment [CONS] Routine PT Evaluation and Treatment [CONS] Routine Bisacodyl [Dulcolax] 10 mg PO DAILY PRN 06/14/19 16:30 GLUCOSE POC LAB TO COLLECT [POC] QIDACANDBED 06/14/19 21:00 GLUCOSE POC LAB TO COLLECT [POC] QIDACANDBED 06/15/19 05:11 BASIC METABOLIC PANEL,BMP [CHEM] AM CBC WITH AUTO DIFF [HEME] AM Plan: ASSESSMENT AND PLAN Postop day one great toe amputation right foot secondary to local cellulitis with osteomyelitis of the distal and proximal phalanges -Continue IV antibiotics of Mefoxin will need antibiotics 6 weeks -Blood cultures pending no growth day 3 - Turnover primary attending to Dr. Oconnell Diabetes mellitus type 2 and hypertension -After increase of glipizide to 20 mg by mouth twice a day blood sugars blood sugars range 107 - 128 - Will continue to follow as animal nutrition consultant for these 2 issues Status post gastric bypass -Care per surgical team Thomas Officer
[2019-06-14] MEDS: Mirtazapine 15 MG Tab PO SCH (20:42)
[2019-06-14] MEDS: Doxepin 25 MG Cap PO SCH (20:42)
[2019-06-14] MEDS: Thiamine 100 MG Tab PO SCH (20:43)
[2019-06-15] MEDS: cefOXitin 2 GM in Sodium Chloride 0.9% 50 ML IV SCH ×4 (02:30→18:24)
[2019-06-15] MEDS: Acetaminophen/HYDROcodone 325-5 MG Tab PO PRN ×5 (02:35→20:19)
[2019-06-15] MEDS: Ibuprofen 600 MG Tab PO SCH ×3 (02:35→18:24)
[2019-06-15] MEDS: Magnesium Sulfate/Water 2 GM in Premix Bag 1 BAG IV SCH ×2 (04:09→09:12)
[2019-06-15] MEDS: fentaNYL 100 MCG/2 ML SDV IVPUSH PRN ×3 (04:14→12:58)
[2019-06-15] MEDS: Metoprolol Tartrate 25 MG Tab PO SCH ×2 (07:29→16:30)
[2019-06-15] MEDS: glipiZIDE 5 MG Tab PO SCH ×2 (07:30→16:30)
[2019-06-15] MEDS: Furosemide 20 MG Tab PO SCH ×2 (07:39→13:01)
[2019-06-15] MEDS: Insulin Lispro 100 Unit/ML 3 ML KwikPen SUBCUT SCH ×4 (07:39→22:25)
[2019-06-15] MEDS: Calcium Carbonate 500 MG Tab.Chew PO SCH ×2 (09:08→20:21)
[2019-06-15] MEDS: Multivitamins with Iron Tab.Chew CHEW SCH ×2 (09:08→20:19)
[2019-06-15] MEDS: Methimazole 5 MG Tab PO SCH (09:09)
[2019-06-15] MEDS: Loratadine 10 MG Tab PO SCH (09:10)
[2019-06-15] MEDS: Lisinopril 10 MG Tab PO SCH (09:10)
[2019-06-15] MEDS: Cholecalciferol (Vitamin D3) 50,000 Unit Cap PO SCH (09:10)
[2019-06-15] MEDS: Aspirin 81 MG Tab.EC PO SCH (09:10)
[2019-06-15] MEDS: Pramipexole 0.5 MG Tab PO SCH ×2 (09:11→20:20)
[2019-06-15] MEDS: DULoxetine 30 MG Cap PO SCH ×2 (09:11→20:21)
[2019-06-15] MEDS: Cyanocobalamin (Vitamin B12) 1,000 MCG/ML SDV IM SCH (09:12)
[2019-06-15] MEDS: Lidocaine 5% 700 MG Patch TRDERM SCH (09:12)
--- NOTE | 2019-06-15 10:24 | PN ---
DATE OF SERVICE: 06/15/2019 SUBJECTIVE: Bora states his pain is controlled. Blood sugar this morning was 148. He is tolerating the restart of all the recommended gastric bypass vitamins. OBJECTIVE: GENERAL: Bora is a 53-year-old male. VITAL SIGNS: TPR is 96.3, 63, 16, blood pressure 163/70. No exam today. ASSESSMENT: 1. Status post Eliza-en-Y gastric bypass surgery. 2. Unspecified surgical malabsorption. 3. B12 deficiency. 4. Diabetes type 2. 5. Status post right great toe amputation. PLAN: 1. To follow up with the Bariatric Surgery Department, Iliana Paulson PA-C, on 07/02/2019. Time to be coordinated when he follows up with Dr. Ronen Oconnell. 2. Continue recommended vitamins and supplements. 3. We will evaluate p.r.n. or in a.m. Iliana Paulson PA-C /[id number]
[2019-06-15] MEDS ORDERED: Sodium Chloride 0.9% 1,000 ML IV SCH (11:41)
--- NOTE | 2019-06-15 11:43 | PCM.CONSN ---
- General Info Date of Service: 06/15/19 Subjective Update: No acute events overnight. Pain fairly well-controlled in the left foot. No fevers. No shortness of breath. Blood sugars very well controlled. Functional Status: Reports: Pain Controlled, Tolerating Diet - Review of Systems General: Denies: Fever Musculoskeletal: Reports: Foot Pain - Patient Data Vitals - Most Recent: Last Vital Signs Temp 35.9 C 06/15/19 10:49 Pulse 64 06/15/19 10:49 Resp 16 06/15/19 10:49 BP 141/58 H 06/15/19 10:49 Pulse Ox 97 06/15/19 10:49 Weight - Most Recent: 99.609 kg I&O - Last 24 Hours: Intake & Output 06/14/19 06/15/19 06/15/19 22:59 06:59 14:59 Intake Total 4966 748 460 Balance 8651 748 460 Lab Results Last 24 Hours: Laboratory Results - last 24 hr 06/12/19 06/12/19 06/15/19 Range/Units 08:42 08:42 05:30 WBC 5.4 (4.5-11.0) K/uL RBC 3.32 L (4.30-5.90) M/uL Hgb 9.6 L (12.0-15.0) g/dL Hct 30.3 L (40.0-54.0) % MCV 91 (80-98) fL MCH 29 (27-31) pg MCHC 32 (32-36) % Plt Count 181 (150-400) K/uL Neut % (Auto) 67 H (36-66) % Lymph % (Auto) 21 L (24-44) % [place] % (Auto) 11 H (2-6) % Eos % (Auto) 1 L (2-4) % Baso % (Auto) 0 (0-1) % Sodium (140-148) mmol/L Potassium (3.6-5.2) mmol/L Chloride (100-108) mmol/L Carbon Dioxide (21-32) mmol/L Anion Gap (5.0-14.0) mmol/L BUN (7-18) mg/dL Creatinine (0.8-1.3) mg/dL Est Cr Clr Drug Dosing mL/min Estimated GFR (MDRD) (>60) Glucose (74-106) mg/dL Calcium (8.5-10.1) mg/dL Serum Copper 95 (72-166) ug/dL Zinc 67 (56-134) ug/dL 06/15/19 Range/Units 05:30 WBC (4.5-11.0) K/uL RBC (4.30-5.90) M/uL Hgb (12.0-15.0) g/dL Hct (40.0-54.0) % MCV (80-98) fL MCH (27-31) pg MCHC (32-36) % Plt Count (150-400) K/uL Neut % (Auto) (36-66) % Lymph % (Auto) (24-44) % [place] % (Auto) (2-6) % Eos % (Auto) (2-4) % Baso % (Auto) (0-1) % Sodium 136 L (140-148) mmol/L Potassium 4.1 (3.6-5.2) mmol/L Chloride 104 (100-108) mmol/L Carbon Dioxide 25 (21-32) mmol/L Anion Gap 11.1 (5.0-14.0) mmol/L BUN 11 (7-18) mg/dL Creatinine 1.0 (0.8-1.3) mg/dL Est Cr Clr Drug Dosing 78.76 mL/min Estimated GFR (MDRD) > 60 (>60) Glucose 148 H (74-106) mg/dL Calcium 8.4 L (8.5-10.1) mg/dL Serum Copper (72-166) ug/dL Zinc (56-134) ug/dL Clarence Results Last 24 Hours: Microbiology 06/11/19 02:10 Aerobic Blood Culture - Preliminary Blood - Venous - Iv Start NO GROWTH AFTER 4 DAYS Anaerobic Blood Culture - Preliminary NO GROWTH AFTER 4 DAYS 06/11/19 02:10 Aerobic Blood Culture - Preliminary Blood - Arm, Right NO GROWTH AFTER 4 DAYS Anaerobic Blood Culture - Preliminary NO GROWTH AFTER 4 DAYS Med Orders - Current: Current Medications Hydrocodone Bitart/Acetaminophen ([place] 325-5 Mg) 0 tab PO Q4H PRN PRN Reason: Pain Last Admin: 06/15/19 07:29 Dose: 2 tab Aspirin (Halfprin) 81 mg PO DAILY [facility] Last Admin: 06/15/19 09:10 Dose: 81 mg Bisacodyl (Dulcolax) 10 mg PO DAILY PRN PRN Reason: Constipation Calcium Carbonate/Glycine (Tums) 500 mg PO BID [facility] Last Admin: 06/15/19 09:08 Dose: 500 mg Cholecalciferol (Vitamin D3) 50,000 unit PO DAILY [facility] Last Admin: 06/15/19 09:10 Dose: 50,000 unit Cyanocobalamin (Vitamin B12) 1,000 mcg IM DAILY [facility] Last Admin: 06/15/19 09:12 Dose: 1,000 mcg Doxepin HCl (Sinequan) 50 mg PO BEDTIME [facility] Last Admin: 06/14/19 20:42 Dose: 50 mg Duloxetine HCl (Cymbalta) 30 mg PO BID [facility] Last Admin: 06/15/19 09:11 Dose: 30 mg Fentanyl (Sublimaze) 50 mcg IVPUSH Q2H PRN PRN Reason: Pain (severe 7-10) Last Admin: 06/15/19 09:23 Dose: 50 mcg Furosemide (Lasix) 20 mg PO BIDDIURETIC [facility] Last Admin: 06/15/19 07:39 Dose: 20 mg Glipizide (Glucotrol) 20 mg PO BIDAC [facility] Last Admin: 06/15/19 07:30 Dose: 20 mg Cefoxitin Sodium 2 gm/ Sodium (Chloride) 50 mls @ 100 mls/hr IV Q6H [facility] Last Admin: 06/15/19 07:30 Dose: 100 mls/hr Sodium Chloride (Normal Saline) 1,000 mls @ 25 mls/hr IV ASDIRECTED [facility] Ibuprofen (Motrin) 600 mg PO Q8H [facility] Last Admin: 06/15/19 10:44 Dose: 600 mg Insulin Human Lispro (Humalog) 0 unit SUBCUT QIDACANDBED [facility]; Protocol Last Admin: 06/15/19 07:39 Dose: Not Given Lidocaine (Lidoderm 5%) 1,400 mg TRDERM DAILY [facility] Last Admin: 06/15/19 09:12 Dose: Not Given Lisinopril (Prinivil) 10 mg PO DAILY [facility] Last Admin: 06/15/19 09:10 Dose: 10 mg Loratadine (Claritin) 10 mg PO DAILY [facility] Last Admin: 06/15/19 09:10 Dose: 10 mg Lovastatin (Mevacor) 20 mg PO BEDTIME [facility] Last Admin: 06/14/19 20:41 Dose: 20 mg Methimazole (Methimazole) 10 mg PO DAILY [facility] Last Admin: 06/15/19 09:09 Dose: 10 mg Metoprolol Tartrate (Lopressor) 25 mg PO BIDPC [facility] Last Admin: 06/15/19 07:29 Dose: 25 mg Mirtazapine (Remeron) 0 mg PO BEDTIME [facility] Last Admin: 06/14/19 20:42 Dose: 15 mg Miscellaneous Information (Remove Patch) 2 ea TRDERM BEDTIME [facility] Last Admin: 06/14/19 20:43 Dose: Not Given Multivitamins/Iron (Child Chew Iron) 1 tab CHEW BID [facility] Last Admin: 06/15/19 09:08 Dose: 1 tab Pramipexole Dihydrochloride (Mirapex) 1 mg PO BID [facility] Last Admin: 06/15/19 09:11 Dose: 1 mg Sodium Chloride (Saline Flush) 10 ml FLUSH ASDIRECTED PRN PRN Reason: Keep Vein Open Thiamine HCl (Vitamin B-1) 100 mg PO BEDTIME [facility] Last Admin: 06/14/19 20:43 Dose: 100 mg Tizanidine HCl (Zanaflex) 4 mg PO TID PRN PRN Reason: MUSCLE SPASMS Discontinued Medications Bupivacaine HCl (Marcaine 0.5%) Confirm Administered Dose 50 ml .ROUTE .STK-MED ONE Stop: 06/13/19 08:55 Bupivacaine HCl (Marcaine 0.5%) Confirm Administered Dose 30 ml .ROUTE .STK-MED ONE Stop: 06/13/19 08:57 Cefoxitin Sodium (Mefoxin) 1 gm IVPUSH ONETIME ONE Stop: 06/11/19 01:55 Last Admin: 06/11/19 02:14 Dose: 1 gm Diphtheria/Tetanus/Acell Pertussis (Adacel) 0.5 ml IM .ONCE ONE Stop: 06/12/19 10:01 Last Admin: 06/12/19 11:56 Dose: 0.5 ml Fentanyl (Sublimaze) 50 mcg IVPUSH Q6H PRN PRN Reason: Pain (severe 7-10) Last Admin: 06/12/19 16:11 Dose: 50 mcg Fentanyl (Sublimaze) Confirm Administered Dose 100 mcg .ROUTE .STK-MED ONE Stop: 06/13/19 08:52 Gadoteridol (Prohance) 20 ml IV . DIRECTED [facility] Stop: 06/11/19 15:00 Last Admin: 06/11/19 13:59 Dose: 20 ml Glipizide (Glucotrol) 10 mg PO BIDAC [facility] Last Admin: 06/12/19 09:10 Dose: 10 mg Sodium Chloride (Normal Saline) 1,000 mls @ 150 mls/hr IV .Q6H40M [facility] Last Admin: 06/11/19 05:35 Dose: Not Given Sodium Chloride (Normal Saline) 1,000 mls @ 150 mls/hr IV ASDIRECTED [facility] Last Admin: 06/12/19 09:21 Dose: 150 mls/hr Cefoxitin Sodium 1 gm/ Sodium (Chloride) 50 mls @ 100 mls/hr IV Q12H [facility] Sodium Chloride (Normal Saline) 1,000 mls @ 100 mls/hr IV ASDIRECTED [facility] Last Admin: 06/14/19 21:27 Dose: 100 mls/hr Magnesium Sulfate 2 gm/ Premix 50 mls @ 25 mls/hr IV Q6H [facility] Stop: 06/16/19 05:59 Last Admin: 06/15/19 09:12 Dose: 25 mls/hr Multivitamins/Minerals 10 ml/Thiamine HCl 100 mg/ Magnesium Sulfate 2 gm/ Folic Acid 1 mg / Lactated Ringer's 1,015.2 mls @ 200 mls/hr IV ONETIME ONE Stop: 06/13/19 21:04 Last Admin: 06/13/19 15:43 Dose: 200 mls/hr Lactated Ringer's (Ringers, Lactated) Confirm Administered Dose 1,000 mls @ as directed .ROUTE .STK-MED ONE Stop: 06/13/19 09:17 Lisinopril (Prinivil) 10 mg PO ONETIME ONE Stop: 06/11/19 05:31 Last Admin: 06/11/19 05:34 Dose: 10 mg Metoprolol Tartrate (Lopressor) 25 mg PO ONETIME ONE Stop: 06/11/19 05:24 Last Admin: 06/11/19 05:34 Dose: 25 mg Metoprolol Tartrate (Lopressor) 25 mg PO ONETIME ONE Stop: 06/11/19 05:31 Last Admin: 06/11/19 05:33 Dose: Not Given Midazolam HCl (Versed 1 Mg/Ml) Confirm Administered Dose 2 mg .ROUTE .STK-MED ONE Stop: 06/13/19 08:52 Mirtazapine (Remeron) 0.5 - 1 mg PO BEDTIME [facility] Last Admin: 06/11/19 21:34 Dose: 15 mg Morphine Sulfate (Morphine) 2 mg IVPUSH Q1H PRN PRN Reason: Pain Last Admin: 06/11/19 15:56 Dose: 2 mg Propofol (Diprivan 20 Ml) Confirm Administered Dose 200 mg .ROUTE .STK-MED ONE Stop: 06/13/19 08:52 Propofol (Diprivan 20 Ml) Confirm Administered Dose 200 mg .ROUTE .STK-MED ONE Stop: 06/13/19 09:33 - Exam Quality Assessment: No: Supplemental Oxygen General: Alert, Oriented, Cooperative, No Acute Distress Lungs: Normal Respiratory Effort Cardiovascular: Regular Rate, Regular Rhythm GI/Abdominal Exam: Soft, No Distention Extremities: Pedal Edema (right lower leg ), Increased Warmth (right lower anterior leg ) Skin: Warm, Dry, Rash (erythema right lower leg receding from marked boundaries ) Wound/Incisions: Dressing Dry and Intact Psy/Mental Status: Alert, Normal Affect Consult PN Assessment/Plan POD#: 2 Procedures: Procedures BLOOD TYPING SEROLOGIC ABO (12/01/16) BLOOD TYPING SEROLOGIC RH(D) (12/01/16) CT HEAD/BRAIN W/O DYE (01/10/17) CT NECK SPINE W/O DYE (01/10/17) EMERGENCY DEPT VISIT (06/22/18) RBC ANTIBODY SCREEN (12/01/16) ROUTINE VENIPUNCTURE (12/01/16) X-RAY EXAM UNILAT RIBS/CHEST (06/22/18) Problem List Initiated/Reviewed/Updated: Yes My Orders Last 24 Hours: My Active Orders 06/15/19 11:41 Sodium Chloride 0.9% [Normal Saline] 1,000 ml IV ASDIRECTED Plan: ASSESSMENT AND PLAN Osteomyelitis of right great toe and cellulitis of the right foot - Postop day 3 great toe amputation right foot secondary. Cellulitis is improving. Pain fairly well controlled. -Continue IV antibiotics of Mefoxin -Transition to ertapenem as an outpatient, planning 6 weeks of treatment -Postoperative care per Dr. Oconnell Diabetes mellitus type 2 - blood sugars very well controlled at this time. -Continue glipizide 20 mg by mouth twice a day Status post gastric bypass -Care per surgical team Boom Mclaughlin M.D.
[2019-06-15] MEDS: Thiamine 100 MG Tab PO SCH (20:20)
[2019-06-15] MEDS: Mirtazapine 15 MG Tab PO SCH (20:22)
[2019-06-15] MEDS: Doxepin 25 MG Cap PO SCH (20:22)
[2019-06-16] MEDS: cefOXitin 2 GM in Sodium Chloride 0.9% 50 ML IV SCH ×3 (00:35→12:29)
[2019-06-16] MEDS: Acetaminophen/HYDROcodone 325-5 MG Tab PO PRN ×3 (00:48→12:23)
[2019-06-16] MEDS: Ibuprofen 600 MG Tab PO SCH ×2 (02:42→10:50)
[2019-06-16] MEDS: Metoprolol Tartrate 25 MG Tab PO SCH (07:20)
[2019-06-16] MEDS: Furosemide 20 MG Tab PO SCH ×2 (07:20→13:09)
[2019-06-16] MEDS: Insulin Lispro 100 Unit/ML 3 ML KwikPen SUBCUT SCH ×2 (07:30→12:23)
[2019-06-16] MEDS: glipiZIDE 5 MG Tab PO SCH (08:21)
[2019-06-16] MEDS: Calcium Carbonate 500 MG Tab.Chew PO SCH (08:22)
[2019-06-16] MEDS: Multivitamins with Iron Tab.Chew CHEW SCH (08:22)
[2019-06-16] MEDS: Lisinopril 10 MG Tab PO SCH (08:23)
[2019-06-16] MEDS: Loratadine 10 MG Tab PO SCH (08:24)
[2019-06-16] MEDS: Methimazole 5 MG Tab PO SCH (08:24)
[2019-06-16] MEDS: Cholecalciferol (Vitamin D3) 50,000 Unit Cap PO SCH (08:24)
[2019-06-16] MEDS: DULoxetine 30 MG Cap PO SCH (08:24)
[2019-06-16] MEDS: Aspirin 81 MG Tab.EC PO SCH (08:25)
[2019-06-16] MEDS: Pramipexole 0.5 MG Tab PO SCH (08:25)
[2019-06-16] MEDS: Lidocaine 5% 700 MG Patch TRDERM SCH (08:26)
[2019-06-16] MEDS: fentaNYL 100 MCG/2 ML SDV IVPUSH PRN (08:40)
[2019-06-16] MEDS: Cyanocobalamin (Vitamin B12) 1,000 MCG/ML SDV IM SCH (08:41)
[2019-06-16] MEDS ORDERED: Cyanocobalamin (Vitamin B12) 1,000 MCG Tab SL SCH (09:00)
[2019-06-16 10:03] VITALS: BP 183/59; PULSE 98
--- NOTE | 2019-06-16 10:28 | PN ---
DATE OF SERVICE: 06/16/2019 SUBJECTIVE: Plan is to be discharged tomorrow. He states he has been taking all of his vitamins, tolerating well. B12 will be changed to sublingual today. He has no other questions or concerns. OBJECTIVE: GENERAL: Bora Padilla is a 53-year-old male. He is alert and orientated, talkative. VITAL SIGNS: TPR; 96, 63, 16. Blood pressure 167/65. Exam deferred. Right dressing does reveal some shadowing of light red drainage. ASSESSMENT: 1. Status post Eliza-en-Y gastric bypass surgery. 2. Unspecified surgical malabsorption. 3. B12 deficiency. 4. Diabetes type 2. 5. Status post right great toe amputation. PLAN: 1. To follow up as stated with Bariatric Surgery Department. 2. Vitamins were reviewed. 3. B12, 1000 mcg sublingual to start today; he was getting B12 injections. 4. He is to follow up in Surgery Department for scheduled appointment on 07/02/2019 or p.r.n. Iliana Paulson PA-C /[id number]
[2019-06-16] MEDS ORDERED: Ertapenem 1 GM in Sodium Chloride 0.9% 100 ML IV SCH (12:00)
--- NOTE | 2019-06-16 13:20 | PN ---
DATE OF SERVICE: 06/16/2019 SUBJECTIVE: The patient is doing very well. Pain is well controlled. No nausea, vomiting, shortness of breath, or chest pain. OBJECTIVE: VITAL SIGNS: Afebrile per nursing report. CARDIOVASCULAR: Regular rhythm and rate. RESPIRATORY: Lungs are clear to auscultation bilaterally. SKIN: Incision healing well. No evidence of cellulitis. Drainage is minimal. ASSESSMENT: Status post toe amputation. PLAN: The patient will be discharged today. Please see discharge instructions for further details. Ronen Oconnell MD /[id number]
--- NOTE | 2019-06-16 13:40 | DISCH ---
DISCHARGE DIAGNOSIS: Status post toe amputation, great toe. SUMMARY OF HOSPITAL COURSE: A pleasant 53-year-old male who underwent a toe amputation due to osteomyelitis and uncontrolled diabetes. The patient did well in his postoperative period. He had no complications. He was treated with IV antibiotics. A PICC line was placed. On his day of discharge, his pain was well controlled. There was no evidence of cellulitis. He was moving with the assistance of a scooter. He had no specific concerns. He was having bowel movements. FOLLOWUP: With Surgery in 7 to 14 days. ACTIVITY: No lifting greater than 30 pounds x30 days. DISCHARGE MEDICATIONS: Recommend the patient takes an NSAID with Percocet as a backup. He also has a PICC line placed IV antibiotics per pharmacy recommendations for 6 weeks.
[2019-06-16] MEDS ORDERED: glipiZIDE 5 MG Tab PO SCH (16:30)
--- NOTE | 2019-06-20 10:58 | OR ---
DATE OF PROCEDURE: 06/13/2019 SURGEON: Ronen Oconnell MD PROCEDURE: Ray amputation (transmetatarsal amputation), right great toe. COMPLICATIONS: None. MACHINE OPERATOR TRANSPLANTER: None. PREOPERATIVE DIAGNOSIS: Diabetic with osteomyelitis of his great toe, requiring amputation. POSTOPERATIVE DIAGNOSIS: Diabetic with osteomyelitis of his great toe, requiring amputation. RISKS: Risks, benefits, alternatives, and limitations including but not limited to infection, bleeding, requirement for reoperation, septic shock, and other risks not listed here were explained to the patient and wished to proceed. ANESTHESIA: MAC/digital block. PROCEDURE IN DETAIL: The patient was placed in supine position. After prepping and draping, digital block was performed of the great toe. A 15 blade was used to make an elliptical incision around the base of the toe. This was then carried down with electrocautery to the bone. A linear incision was made extending up from the base of the toe approximately 2 cm facilitating the transmetatarsal amputation. Using electrocautery, the fascia was enlarged. Using a TPS system, the metatarsal head would be transected. The tendons were then transected sharply. The toe was then sent to pathology. The tendons were then stretched and transected. Bleeding specifically to digital arteries were controlled with electrocautery and/or suture ligation. The toe was then thoroughly irrigated. This would be reapproximated using 2 layers of 2-0 Vicryl along with cecile. 1/4 inch iodoform packing was placed within this. Dressings were applied. The patient tolerated the procedure well. Ronen Oconnell MD /[id number]
== END 2019-06-16 14:00 | disposition home or self-care (01) | DRG 617 ==
LOC: JP.ED 00:15 → JP.MS 04:06
PROVIDERS: ADMIT Surgery; ATTEND Internal Medicine
PROC: 0Y6P0Z3 Detachment at Right 1st Toe, Low, Open Approach (ICD-10-PCS; principal; 2019-06-13)
DX: E11.628 Type 2 diabetes mellitus with other skin complications (principal); L03.115 Cellulitis of right lower limb; M86.9 Osteomyelitis, unspecified; K91.2 Postsurgical malabsorption, not elsewhere classified; E11.69 Type 2 diabetes mellitus with other specified complication; E11.65 Type 2 diabetes mellitus with hyperglycemia; H54.7 Unspecified visual loss; E11.42 Type 2 diabetes mellitus with diabetic polyneuropathy; Z79.84 Long term (current) use of oral hypoglycemic drugs; I10 Essential (primary) hypertension; E78.00 Pure hypercholesterolemia, unspecified; K44.9 Diaphragmatic hernia without obstruction or gangrene; G47.33 Obstructive sleep apnea (adult) (pediatric); N28.9 Disorder of kidney and ureter, unspecified; G89.29 Other chronic pain; M54.5 Low back pain; M19.90 Unspecified osteoarthritis, unspecified site; F32.9 Major depressive disorder, single episode, unspecified; F41.9 Anxiety disorder, unspecified; E66.9 Obesity, unspecified; E55.9 Vitamin D deficiency, unspecified; Z86.14 Personal history of Methicillin resistant Staphylococcus aureus infection; Z88.0 Allergy status to penicillin; Z88.1 Allergy status to other antibiotic agents; Z88.2 Allergy status to sulfonamides; Z88.8 Allergy status to other drugs, medicaments and biological substances; Z79.82 Long term (current) use of aspirin; Z79.899 Other long term (current) drug therapy; R53.82 Chronic fatigue, unspecified; D50.9 Iron deficiency anemia, unspecified; G47.00 Insomnia, unspecified; Z98.84 Bariatric surgery status; G25.81 Restless legs syndrome; E53.8 Deficiency of other specified B group vitamins; E83.42 Hypomagnesemia
CPT/HCPCS: 36415; 36569; 73723-RT; 80048; 80053; 82306; 82525; 82607; 82728; 82746; 82962; 83036; 83735; 84100; 84425; 84590; 84630; 85025; 85027; 87040; 87070; 87077; 87186; 87205; 88309; 88311; 90471; 90715; 93922; 96374; 97110-GP; 97162-GP; 97530-GP; 97535-GP; 99284-25; A9270-GY; A9576; A9579; C1751; J0694; J1335; J1815; J2250; J2270; J2704; J3010; J3411; J3420; J3475; J3490; J7030; J7050; J7120

== ENCOUNTER 2019-07-27 06:53 | Inpatient (IN) | payer SELFPAY ==
[2019-07-27] MEDS ORDERED: Sodium Chloride 0.9% 10 ML Syringe FLUSH PRN ×2 (07:03→11:58)
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
[2019-07-27] MEDS ORDERED: Sodium Chloride 0.9% 80 ML IV SCH (07:15)
[2019-07-27] MEDS ORDERED: Iopamidol 612 MG/ML 100 ML Bottle IV SCH (07:15)
[2019-07-27] MEDS ORDERED: HYDROmorphone 0.5 MG/0.5 ML Syringe IVPUSH ONE (08:03)
[2019-07-27] MEDS ORDERED: Ondansetron 4 MG/2 ML SDV IVPUSH ONE (08:04)
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
[2019-07-27] MEDS ORDERED: Bacitracin Oint 1 GM U/D Packet TOP ONE (08:48)
[2019-07-27] MEDS ORDERED: HYDROmorphone 1 MG/ML Syringe IVPUSH ONE (08:48)
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
[2019-07-27] MEDS ORDERED: Glucose Gel 15 GM in 37.5 GM Tube PO PRN (11:58)
[2019-07-27] MEDS ORDERED: Polyethylene Glycol 3350 Powder 17 GM Packet PO PRN (11:58)
[2019-07-27] MEDS ORDERED: Ondansetron 4 MG/2 ML SDV IV PRN (11:58)
[2019-07-27] MEDS ORDERED: 50% Dextrose in Water 50 ML Syringe IV PRN (11:58)
[2019-07-27] MEDS ORDERED: Albuterol 0.083% 2.5 MG/3 ML Neb Soln NEB PRN (11:58)
[2019-07-27] MEDS ORDERED: LORazepam 1 MG Tab PO PRN (11:58)
[2019-07-27] MEDS ORDERED: Acetaminophen 325 MG Tab PO PRN (11:58)
[2019-07-27] MEDS: Acetaminophen/oxyCODONE 325-5 MG Tab PO PRN ×3 (12:37→21:14)
[2019-07-27] MEDS: Sodium Chloride 0.9% 1,000 ML IV SCH (12:45)
[2019-07-27] MEDS: Thiamine 100 MG Tab PO SCH (13:10)
[2019-07-27] MEDS: Lisinopril 10 MG Tab PO SCH ×2 (13:10→21:15)
[2019-07-27] MEDS: Folic Acid 1 MG Tab PO SCH (13:10)
[2019-07-27] MEDS: Metoprolol Tartrate 25 MG Tab PO SCH ×2 (13:10→21:12)
[2019-07-27] MEDS ORDERED: MVI, Adult with Vitamin K 10 ML, Thiamine 100 MG, Folic Acid 1 MG, Magnesium Sulfate 2 ... IV ONE ×5 (13:30)
[2019-07-27] MEDS ORDERED: Ertapenem 1 GM Vial IV SCH (14:00)
[2019-07-27] MEDS: Insulin Lispro 100 Unit/ML 3 ML KwikPen SUBCUT SCH ×3 (14:04→21:11)
[2019-07-27] MEDS: Ertapenem 1 GM in Sodium Chloride 0.9% 100 ML IV SCH (14:13)
[2019-07-27] MEDS: Gabapentin 400 MG Cap PO SCH ×2 (14:29→21:16)
[2019-07-27] MEDS: Pramipexole 0.5 MG Tab PO SCH (21:15)
[2019-07-27] MEDS: Doxepin 25 MG Cap PO SCH (21:16)
[2019-07-27] MEDS: Mirtazapine 15 MG Tab PO SCH (21:28)
[2019-07-28] MEDS: Gabapentin 400 MG Cap PO SCH ×3 (05:56→21:12)
[2019-07-28] MEDS: Sodium Chloride 0.9% 1,000 ML IV SCH ×3 (06:14→22:22)
[2019-07-28] MEDS: Metoprolol Tartrate 25 MG Tab PO SCH ×2 (08:34→21:07)
[2019-07-28] MEDS: Methimazole 5 MG Tab PO SCH (08:34)
[2019-07-28] MEDS: Folic Acid 1 MG Tab PO SCH (08:34)
[2019-07-28] MEDS: Thiamine 100 MG Tab PO SCH (08:35)
[2019-07-28] MEDS: Lisinopril 10 MG Tab PO SCH ×2 (08:35→21:07)
[2019-07-28] MEDS: Insulin Lispro 100 Unit/ML 3 ML KwikPen SUBCUT SCH ×4 (08:40→21:10)
[2019-07-28] MEDS: metFORMIN 500 MG Tab PO SCH ×2 (09:12→17:45)
[2019-07-28] MEDS: Acetaminophen/oxyCODONE 325-5 MG Tab PO PRN ×2 (09:13→15:57)
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
[2019-07-28] MEDS: DULoxetine 30 MG Cap PO SCH ×2 (12:04→20:54)
[2019-07-28] MEDS: Ertapenem 1 GM in Sodium Chloride 0.9% 100 ML IV SCH (14:02)
[2019-07-28] MEDS: Doxepin 25 MG Cap PO SCH (20:55)
[2019-07-28] MEDS: Pramipexole 0.5 MG Tab PO SCH (20:55)
[2019-07-28] MEDS: Mirtazapine 15 MG Tab PO SCH (20:55)
[2019-07-29] MEDS: Gabapentin 400 MG Cap PO SCH (05:06)
[2019-07-29] MEDS: Acetaminophen/oxyCODONE 325-5 MG Tab PO PRN ×3 (05:06→21:25)
[2019-07-29] MEDS: Sodium Chloride 0.9% 1,000 ML IV SCH (06:26)
[2019-07-29] MEDS: Insulin Lispro 100 Unit/ML 3 ML KwikPen SUBCUT SCH ×4 (08:12→21:16)
[2019-07-29] MEDS: Folic Acid 1 MG Tab PO SCH (08:13)
[2019-07-29] MEDS: DULoxetine 30 MG Cap PO SCH ×2 (08:13→21:17)
[2019-07-29] MEDS: metFORMIN 500 MG Tab PO SCH ×2 (08:13→18:34)
[2019-07-29] MEDS: Metoprolol Tartrate 25 MG Tab PO SCH ×2 (08:13→21:17)
[2019-07-29] MEDS: Lisinopril 10 MG Tab PO SCH ×2 (08:14→21:18)
[2019-07-29] MEDS: Methimazole 5 MG Tab PO SCH (08:14)
[2019-07-29] MEDS: Thiamine 100 MG Tab PO SCH (08:14)
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
[2019-07-29] MEDS: glipiZIDE 5 MG Tab PO SCH ×2 (11:25→18:34)
[2019-07-29] MEDS: Ertapenem 1 GM in Sodium Chloride 0.9% 100 ML IV SCH (13:46)
[2019-07-29] MEDS: Gabapentin 100 MG Cap PO SCH ×2 (13:47→21:17)
[2019-07-29] MEDS: Pramipexole 0.5 MG Tab PO SCH (21:16)
[2019-07-29] MEDS: Doxepin 25 MG Cap PO SCH (21:17)
[2019-07-29] MEDS: Mirtazapine 15 MG Tab PO SCH (21:18)
[2019-07-30] MEDS: Acetaminophen/oxyCODONE 325-5 MG Tab PO PRN ×3 (05:54→20:38)
[2019-07-30] MEDS: glipiZIDE 5 MG Tab PO SCH ×2 (08:08→16:40)
[2019-07-30] MEDS: Insulin Lispro 100 Unit/ML 3 ML KwikPen SUBCUT SCH (08:09)
[2019-07-30] MEDS: DULoxetine 30 MG Cap PO SCH ×2 (08:29→20:40)
[2019-07-30] MEDS: Methimazole 5 MG Tab PO SCH (08:31)
[2019-07-30] MEDS: metFORMIN 500 MG Tab PO SCH ×2 (08:31→17:59)
[2019-07-30] MEDS: Thiamine 100 MG Tab PO SCH (08:32)
[2019-07-30] MEDS: Folic Acid 1 MG Tab PO SCH (08:32)
[2019-07-30] MEDS: Lisinopril 10 MG Tab PO SCH ×2 (08:32→20:39)
[2019-07-30] MEDS: Gabapentin 100 MG Cap PO SCH ×3 (08:35→20:41)
[2019-07-30] MEDS: Metoprolol Tartrate 25 MG Tab PO SCH ×2 (08:36→20:40)
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
[2019-07-30] MEDS: Mirtazapine 15 MG Tab PO SCH (20:39)
[2019-07-30] MEDS: Doxepin 25 MG Cap PO SCH (20:39)
[2019-07-30] MEDS: Pramipexole 0.5 MG Tab PO SCH (20:42)
[2019-07-31] MEDS: Acetaminophen/oxyCODONE 325-5 MG Tab PO PRN ×4 (03:43→21:21)
[2019-07-31] MEDS: glipiZIDE 5 MG Tab PO SCH ×2 (07:52→16:07)
[2019-07-31] MEDS: metFORMIN 500 MG Tab PO SCH ×2 (07:58→17:13)
[2019-07-31] MEDS: Methimazole 5 MG Tab PO SCH (07:59)
[2019-07-31] MEDS: Gabapentin 100 MG Cap PO SCH ×2 (08:00→13:18)
[2019-07-31] MEDS: DULoxetine 30 MG Cap PO SCH ×2 (08:01→21:17)
[2019-07-31] MEDS: Lisinopril 10 MG Tab PO SCH ×2 (08:01→21:16)
[2019-07-31] MEDS: Metoprolol Tartrate 25 MG Tab PO SCH ×2 (08:02→21:17)
[2019-07-31] MEDS: Folic Acid 1 MG Tab PO SCH (08:02)
[2019-07-31] MEDS: Thiamine 100 MG Tab PO SCH (08:04)
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
[2019-07-31] MEDS: Doxepin 25 MG Cap PO SCH (21:15)
[2019-07-31] MEDS: Pramipexole 0.5 MG Tab PO SCH (21:16)
[2019-07-31] MEDS: Mirtazapine 15 MG Tab PO SCH (21:18)
[2019-08-01] MEDS: Acetaminophen/oxyCODONE 325-5 MG Tab PO PRN ×2 (03:42→08:10)
[2019-08-01] MEDS: glipiZIDE 5 MG Tab PO SCH (08:01)
[2019-08-01] MEDS: DULoxetine 30 MG Cap PO SCH (08:02)
[2019-08-01] MEDS: metFORMIN 500 MG Tab PO SCH (08:02)
[2019-08-01] MEDS: Folic Acid 1 MG Tab PO SCH (08:03)
[2019-08-01] MEDS: Metoprolol Tartrate 25 MG Tab PO SCH (08:03)
[2019-08-01] MEDS: Thiamine 100 MG Tab PO SCH (08:05)
[2019-08-01] MEDS: Methimazole 5 MG Tab PO SCH (08:05)
[2019-08-01] MEDS: Lisinopril 10 MG Tab PO SCH (08:06)
[2019-08-01 08:37] VITALS: BP 174/82; PULSE 78
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
== END 2019-08-01 14:25 | disposition home or self-care (01) | DRG 552 ==
LOC: JP.ED 06:53 → JP.MS 10:34 → JP.ICU 20:48
PROVIDERS: ADMIT Hospitalist; ATTEND Internal Medicine
DX: S22.079A Unspecified fracture of T9-T10 vertebra, initial encounter for closed fracture (principal); M86.8X7 Other osteomyelitis, ankle and foot; F10.229 Alcohol dependence with intoxication, unspecified; S22.089A Unspecified fracture of T11-T12 vertebra, initial encounter for closed fracture; E11.42 Type 2 diabetes mellitus with diabetic polyneuropathy; Y90.8 Blood alcohol level of 240 mg/100 ml or more; E78.00 Pure hypercholesterolemia, unspecified; I10 Essential (primary) hypertension; J45.909 Unspecified asthma, uncomplicated; G47.30 Sleep apnea, unspecified; K44.9 Diaphragmatic hernia without obstruction or gangrene; F41.9 Anxiety disorder, unspecified; F32.9 Major depressive disorder, single episode, unspecified; E66.9 Obesity, unspecified; M19.90 Unspecified osteoarthritis, unspecified site; D50.9 Iron deficiency anemia, unspecified; R79.89 Other specified abnormal findings of blood chemistry; S00.01XA Abrasion of scalp, initial encounter; S20.312A Abrasion of left front wall of thorax, initial encounter; S30.811A Abrasion of abdominal wall, initial encounter; E11.69 Type 2 diabetes mellitus with other specified complication; Z88.1 Allergy status to other antibiotic agents; Z88.2 Allergy status to sulfonamides; Z88.5 Allergy status to narcotic agent; Z79.82 Long term (current) use of aspirin; Z79.84 Long term (current) use of oral hypoglycemic drugs; Z79.899 Other long term (current) drug therapy; Z68.30 Body mass index [BMI] 30.0-30.9, adult; Z89.411 Acquired absence of right great toe; Z87.891 Personal history of nicotine dependence; V47.5XXA Car driver injured in collision with fixed or stationary object in traffic accident, initial encounter
CPT/HCPCS: 36415; 70450; 71260; 72125; 74177; 80048; 80053; 82962; 83690; 85025; 94762; 96374; 96375; 96376; 97162-GP; 97530-GP; 99285; 99285-25; A9270-GY; G0480; J1170; J1335; J1642; J1815; J2405; J3411; J3475; J3490; J7030; Q9967

== ENCOUNTER 2020-08-27 21:48 | Emergency (ER) | payer MEDICAID ==
[2020-08-27] MEDS ORDERED: Metoprolol Tartrate 25 MG Tab PO ONE ×2 (22:33→22:34)
[2020-08-27] MEDS ORDERED: Lisinopril 10 MG Tab PO ONE ×2 (22:33→22:34)
[2020-08-27] MEDS ORDERED: Sodium Chloride 0.9% 10 ML Syringe FLUSH PRN (22:35)
--- NOTE | 2020-08-27 22:46 | EDM.PDOC ---
ED HPI GENERAL MEDICAL PROBLEM - General Chief Complaint: Respiratory Problem Stated Complaint: [facility] Time Seen by Provider: 08/27/20 22:30 Source of Information: Reports: Patient, EMS, Old Records, RN History Limitations: Reports: No Limitations - History of Present Illness INITIAL COMMENTS - FREE TEXT/NARRATIVE: 54 yo male presents with SOB/orthopnea that has been present for over a week, but is worse tonight. He last had a BP check in the clinic about 6 weeks ago and says he was a little high in the 150's. He was supposed to return in 3-4 weeks for a recheck but did not. He has no fever or cough. His R leg which is chronically swollen is much worse lately. He has some low chest/upper abdominal mild tightness with breathing. Comes in tonight via EMS for his SOB. Onset: Gradual Onset Date: 08/20/20 Duration: Day(s):, Getting Worse Location: Reports: Chest Quality: Reports: Other (mild tightness) Severity: Mild Improves with: Reports: None Worsens with: Reports: Other (time, deep inspiration) Context: Reports: Other (see HPI) Associated Symptoms: Reports: Shortness of Breath. Denies: Chest Pain, Cough, Diaphoresis, Fever/Chills, Nausea/Vomiting Treatments WASTE RECYCLER: Reports: IV/IO, Oxygen, Other (see below) (none, not even his evening meds) Middle Chest Pain Score (Numeric/FACES): 2 - Related Data Allergies Allergy/AdvReac Type Severity Reaction Status Date / Time clindamycin Allergy Hives Verified 08/27/20 21:54 Penicillins Allergy Cannot Verified 08/27/20 21:54 Remember Sulfa (Sulfonamide Allergy Swelling Verified 08/27/20 21:54 Antibiotics) simvastatin [From Zocor] AdvReac Nausea and Verified 08/27/20 21:54 Vomiting tramadol AdvReac Confusion Verified 08/27/20 21:54 Home Meds: Home Meds Lisinopril 10 mg PO BID 01/10/17 [History] Lovastatin 20 mg PO BEDTIME 01/10/17 [History] Aspirin [Ecotrin EC] 81 mg PO DAILY 07/20/17 [History] Metoprolol Tartrate [Lopressor] 25 mg PO BID 07/20/17 [History] Pramipexole [Mirapex] 1 mg PO BEDTIME 07/20/17 [History] methIMAzole [Tapazole] 10 mg PO DAILY 07/20/17 [History] Doxepin [SINEquan] 50 mg PO BEDTIME 07/26/17 [History] Mirtazapine 15 mg PO BEDTIME 06/22/18 [History] DULoxetine [Cymbalta] 30 mg PO BID 07/28/19 [History] Acetaminophen [Tylenol Extra Strength] 1,500 mg PO BID 08/27/20 [History] Etodolac 1 tab PO TID 08/27/20 [History] Furosemide [Lasix] 40 mg PO DAILY 08/27/20 [History] SitaGLIPtin [Januvia] 50 mg PO BID 08/27/20 [History] Past Medical History HEENT History: Reports: Impaired Vision Cardiovascular History: Reports: High Cholesterol, Hypertension, SOB on Exertion Respiratory History: Reports: Asthma, Sleep Apnea, SOB Other Respiratory History: does have cpap does not always use Gastrointestinal History: Reports: Helicobacter Pylori, Hiatal Hernia, Other (See Below) Other Gastrointestinal History: necrotizingfacitis Genitourinary History: Reports: Renal Disease Musculoskeletal History: Reports: Arthritis, Back Pain, Chronic, Fracture, Os teoarthritis Neurological History: Reports: Neuropathy, Peripheral Psychiatric History: Reports: Anxiety, Depression Endocrine/Metabolic History: Reports: Diabetes, Type II, IDDM, Obesity/BMI 30+, Vitamin D Deficiency Other Endocrine/Metabolic History: pt states he has something wrong with his thyroid Hematologic History: Reports: Anemia, Blood Transfusion(s), Iron Deficiency Immunologic History: Reports: None Oncologic (Cancer) History: Reports: None Dermatologic History: Reports: Chronic Cellulitis - Infectious Disease History Infectious Disease History: Reports: Chicken Pox Other Infectious Disease History: MRSA 15 years ago - Past Surgical History Head Surgeries/Procedures: Reports: None HEENT Surgical History: Reports: None Cardiovascular Surgical History: Reports: None Respiratory Surgical History: Reports: None GI Surgical History: Reports: Colonoscopy, EGD Endocrine Surgical History: Reports: None Neurological Surgical History: Reports: None Musculoskeletal Surgical History: Reports: Amputation, Other (See Below) Other Musculoskeletal Surgeries/Procedures:: finger fx, amputation of right big toe june 2019 fx 3 vertabrae Jul 2019 Oncologic Surgical History: Reports: None Dermatological Surgical History: Reports: None Social & Family History - Family History Family Medical History: Noncontributory - Tobacco Use Tobacco Use Status *Q: Former Tobacco User Years of Tobacco use: 25 Packs/Tins Daily: 2 Used Tobacco, but Quit: Yes Month/Year Tobacco Last Used: Jun Second Hand Smoke Exposure: No - Caffeine Use Caffeine Use: Reports: Energy Drinks, Soda Caffeine Use Comment: 6/daily - Alcohol Use Days Per Week of Alcohol Use: 3 Number of Drinks Per Day: 10 Total Drinks Per Week: 30 Date of Last Drink: 05/14/20 - Recreational Drug Use Recreational Drug Use: No ED ROS GENERAL - Review of Systems Review Of Systems: See Below Constitutional: Reports: No Symptoms HEENT: Reports: No Symptoms Respiratory: Reports: Shortness of Breath. Denies: Wheezing, Pleuritic Chest Pain, Cough, Sputum, Hemoptysis Cardiovascular: Reports: Chest Pain (mild tightness), Blood Pressure Problem (patient says was high in clinic when last there 6 wks ago with no changes made in his meds. ), Dyspnea on Exertion, Edema (R leg), Orthopnea. Denies: Palpitations, PND, Syncope Endocrine: Reports: No Symptoms GI/Abdominal: Reports: No Symptoms : Reports: No Symptoms Musculoskeletal: Reports: No Symptoms Skin: Reports: No Symptoms Neurological: Reports: No Symptoms ED EXAM, GENERAL - Physical Exam Exam: See Below Exam Limited By: No Limitations General Appearance: Alert, WD/WN, Mild Distress Eye Exam: Bilateral Eye: Conjunctival Injection (pale conjunctivas bilaterally), Normal Inspection Ears: Normal External Exam, Normal Canal, Hearing Grossly Normal Ear Exam: Bilateral Ear: Auricle Normal, Canal Normal Nose: Normal Inspection, No Blood Throat/Mouth: Normal Inspection, Normal Lips, Normal Oropharynx, Normal Voice, No Airway Compromise Head: Atraumatic, Normocephalic Neck: Normal Inspection Respiratory/Chest: No Respiratory Distress, No Accessory Muscle Use, Rales. No: Lungs Clear, Normal Breath Sounds, Rhonchi, Wheezing Cardiovascular: Regular Rate, Rhythm. No: No Edema GI/Abdominal: Normal Bowel Sounds, Soft, Non-Tender, No Distention Back Exam: Normal Inspection. No: CVA Tenderness (R), CVA Tenderness (L) Extremities: Non-Tender, Pedal Edema (R leg with tense edema below the knee), Increased Warmth (R leg slightly warmer than the opposite leg.). No: No Pedal Edema Neurological: Alert, Oriented, CN II-XII Intact, Normal Cognition, No Motor/Sensory Deficits Psychiatric: Normal Affect, Normal Mood Skin Exam: Warm, Dry, Intact, No Rash, Erythema (R leg below the knee is minimally reddened. ), Increased Warmth (R leg slightly warmer than the opposing leg. ). No: Normal Color #1 Interpretation EKG Date: 08/27/20 Time: 23:25 Rhythm: NSR Rate (Beats/Min): 60 [place]: Normal P-Wave: Present QRS: Normal ST-T: Normal QT: Normal Comparison: NA - No Prior EKG Course - Vital Signs Text/Narrative:: accepted by Dr. Kelly @ [facility] Last Recorded V/S: Last Vital Signs Temp 36.4 C 08/27/20 22:17 Pulse 53 L 08/28/20 02:15 Resp 18 08/28/20 02:15 BP 153/60 H 08/28/20 02:38 Pulse Ox 91 L 08/28/20 02:15 - Orders/Labs/Meds Orders: Active Orders 24 hr Category Date Time Status Cardiac Monitoring [RC] .As Directed Care 08/27/20 22:40 Active EKG Documentation Completion [RC] ASDIRECTED Care 08/27/20 23:25 Active Chest 2V [CR] Stat Exams 08/27/20 22:40 Taken VL Duplex Lwr Ext Veins Ltd Rt [US] Stat Exams 08/27/20 23:12 Taken Clopidogrel [Plavix] Med 08/28/20 03:30 Once 300 mg PO ONETIME ONE Sodium Chloride 0.9% [Saline Flush] Med 08/27/20 22:35 Active 10 ml FLUSH ASDIRECTED PRN Saline Lock Insert [OM.PC] Routine Oth 08/27/20 22:35 Ordered EKG 12 Lead [EK] Routine Ther 08/27/20 23:24 Ordered Medication Orders Sodium Chloride (Saline Flush) 10 ml FLUSH ASDIRECTED PRN PRN Reason: Keep Vein Open Last Admin: 08/27/20 23:04 Dose: 10 ml Documented by: HUY Labs: Laboratory Tests 08/27/20 08/27/20 08/27/20 Range/Units 22:51 22:51 22:51 WBC 8.3 (4.5-11.0) K/uL RBC 3.79 L (4.30-5.90) M/uL Hgb 10.0 L (12.0-15.0) g/dL Hct 32.3 L (40.0-54.0) % MCV 85 (80-98) fL MCH 26 L (27-31) pg MCHC 31 L (32-36) % Plt Count 123 L (150-400) K/uL D-Dimer, Quantitative 1390 H (0.0-400.0) ng/mL Sodium 140 (140-148) mmol/L Potassium 3.9 (3.6-5.2) mmol/L Chloride 104 (100-108) mmol/L Carbon Dioxide 27 (21-32) mmol/L Anion Gap 9.0 (5.0-14.0) mmol/L BUN 18 (7-18) mg/dL Creatinine 1.3 (0.8-1.3) mg/dL Est Cr Clr Drug Dosing 60.03 mL/min Estimated GFR (MDRD) 57 L (>60) Glucose 166 H (74-106) mg/dL Calcium 8.6 (8.5-10.1) mg/dL Total Bilirubin 0.5 (0.2-1.0) mg/dL AST 14 L D (15-37) U/L ALT 20 D (12-78) U/L Alkaline Phosphatase 136 H (46-116) U/L Troponin I 0.152 H* (0.000-0.056) ng/mL NT-Pro-B Natriuret Pep 2971 H (5-125) pg/mL Total Protein 6.4 (6.4-8.2) g/dL Albumin 2.7 L (3.4-5.0) g/dL Globulin 3.7 H (2.3-3.5) g/dL Albumin/Globulin Ratio 0.7 L (1.2-2.2) SARS CoV-2 RNA Rapid SUSHMA 08/28/20 Range/Units 01:51 WBC (4.5-11.0) K/uL RBC (4.30-5.90) M/uL Hgb (12.0-15.0) g/dL Hct (40.0-54.0) % MCV (80-98) fL MCH (27-31) pg MCHC (32-36) % Plt Count (150-400) K/uL D-Dimer, Quantitative (0.0-400.0) ng/mL Sodium (140-148) mmol/L Potassium (3.6-5.2) mmol/L Chloride (100-108) mmol/L Carbon Dioxide (21-32) mmol/L Anion Gap (5.0-14.0) mmol/L BUN (7-18) mg/dL Creatinine (0.8-1.3) mg/dL Est Cr Clr Drug Dosing mL/min Estimated GFR (MDRD) (>60) Glucose (74-106) mg/dL Calcium (8.5-10.1) mg/dL Total Bilirubin (0.2-1.0) mg/dL AST (15-37) U/L ALT (12-78) U/L Alkaline Phosphatase (46-116) U/L Troponin I (0.000-0.056) ng/mL NT-Pro-B Natriuret Pep (5-125) pg/mL Total Protein (6.4-8.2) g/dL Albumin (3.4-5.0) g/dL Globulin (2.3-3.5) g/dL Albumin/Globulin Ratio (1.2-2.2) SARS CoV-2 RNA Rapid SUSHMA Negative Meds: Medications Generic Name Dose Route Start Last Admin Trade Name Cady PRN Reason Stop Dose Admin Sodium Chloride 10 ml 08/27/20 22:35 08/27/20 23:04 Saline Flush FLUSH 10 ml ASDIRECTED PRN Administration Keep Vein Open Discontinued Medications Generic Name Dose Route Start Last Admin Trade Name Cady PRN Reason Stop Dose Admin Aspirin 243 mg 08/27/20 23:26 08/27/20 23:43 Aspirin PO 08/27/20 23:27 243 mg ONETIME ONE Administration Furosemide 40 mg 08/27/20 22:50 08/27/20 22:59 Lasix IVPUSH 08/27/20 22:51 40 mg ONETIME ONE Administration Hydralazine HCl 10 mg 08/28/20 02:10 08/28/20 02:38 Apresoline PO 08/28/20 02:11 10 mg NOW STA Administration Sodium Chloride 100 mls @ 4 mls/sec 08/28/20 00:29 10/23/20 00:40 Normal Saline IV 08/28/20 00:30 4 mls/sec ASDIRECTED STA Administration Iopamidol 100 ml 08/28/20 00:29 08/28/20 00:40 Isovue-370 (76%) IV 08/28/20 00:30 100 ml . DIRECTED STA Administration Lisinopril 10 mg 08/27/20 22:33 08/27/20 22:44 Prinivil PO 08/27/20 22:34 10 mg ONETIME ONE Administration Lisinopril 10 mg 08/27/20 22:34 08/27/20 22:45 Prinivil PO 08/27/20 22:35 10 mg ONETIME ONE Administration Metoprolol Tartrate 25 mg 08/27/20 22:33 08/27/20 22:44 Lopressor PO 08/27/20 22:34 25 mg ONETIME ONE Administration Metoprolol Tartrate 25 mg 08/27/20 22:34 08/27/20 22:44 Lopressor PO 08/27/20 22:35 25 mg ONETIME ONE Administration Nitroglycerin 1 gm 08/27/20 22:50 08/27/20 22:57 Nitro-Bid 2% TOP 08/27/20 22:51 1 gm ONETIME ONE Administration - Radiology Interpretation Free Text/Narrative:: CXR-pulmonary edema present Doppler R leg-negative CTA chest-IMPRESSIONS: 1. No CT evidence of acute pulmonary emboli seen. 2. Symmetric moderate large pleural effusions are noted. 3. Moderate, stable enlargement of the main pulmonary artery is present and measures 3.6 cm in maximal short axis. This is likely due to pulmonary hypertension. 4. Scattered areas ground-glass opacities are present in the midlung zones and left apex. Peribronchial thickening interlobular smooth septal thickening is seen in both lung bases. The imaging findings are most likely due to pulmonary edema. Clinical correlation is recommended to exclude COVID-19 infection which may account for some of the ground-glass opacities in the left upper lobe. Dictated by Jarod uHggins MD @ 08/28/2020 1:32:[address] Results Date: 08/28/20 CT Results Time: 01:37 - Re-Assessments/Exams Free Text/Narrative Re-Assessment/Exam: 08/28/20 02:50 chest tightness gone, breathing much improved, BP down after our treatment. Covid negative, will discuss acceptance with Scott Isaac. Departure - Departure Time of Disposition: 03:45 Disposition: DC/Tfer to Acute Hospital 02 Condition: Fair Clinical Impression: Non-STEMI (non-ST elevated myocardial infarction), Elevated d-dimer HTN (hypertension) Qualifiers: Hypertension type: unspecified Qualified Code(s): I10 - Essential (primary) hypertension CHF (congestive heart failure) Qualifiers: Heart failure type: unspecified Heart failure chronicity: acute Qualified Code(s): I50.9 - Heart failure, unspecified - Discharge Information Referrals: Vivian Mora PA [Primary Care Provider] - Forms: ED Department Discharge Sepsis Event Note (ED) - Evaluation Sepsis Screening Result: No Definite Risk - Focused Exam Vital Signs: Vital Signs Temp Pulse Pulse Resp BP BP Pulse Ox 08/28/20 02:38 153/60 H 08/28/20 02:15 53 L 18 153/60 H 91 L 08/28/20 01:45 56 L 18 166/71 H 91 L 08/27/20 23:45 61 20 176/64 H 90 L 08/27/20 23:10 61 187/79 H 89 L 08/27/20 22:45 198/92 H 08/27/20 22:44 80 198/92 H 08/27/20 22:20 87 198/92 H 93 L 08/27/20 22:17 36.4 C 91 24 H 229/105 H 97 08/27/20 21:53 36.4 C 91 22 H 229/105 H 97 - My Orders Last 24 Hours: My Active Orders 08/27/20 22:35 Sodium Chloride 0.9% [Saline Flush] 10 ml FLUSH ASDIRECTED PRN Saline Lock Insert [OM.PC] Routine 08/27/20 22:40 Cardiac Monitoring [RC] .As Directed Chest 2V [CR] Stat 08/27/20 23:12 VL Duplex Lwr Ext Veins Ltd Rt [US] Stat 08/27/20 23:24 EKG 12 Lead [EK] Routine 08/27/20 23:25 EKG Documentation Completion [RC] ASDIRECTED 08/28/20 03:30 Clopidogrel [Plavix] 300 mg PO ONETIME ONE - Assessment/Plan Last 24 Hours: My Active Orders 08/27/20 22:35 Sodium Chloride 0.9% [Saline Flush] 10 ml FLUSH ASDIRECTED PRN Saline Lock Insert [OM.PC] Routine 08/27/20 22:40 Cardiac Monitoring [RC] .As Directed Chest 2V [CR] Stat 08/27/20 23:12 VL Duplex Lwr Ext Veins Ltd Rt [US] Stat 08/27/20 23:24 EKG 12 Lead [EK] Routine 08/27/20 23:25 EKG Documentation Completion [RC] ASDIRECTED 08/28/20 03:30 Clopidogrel [Plavix] 300 mg PO ONETIME ONE
[2020-08-27] MEDS ORDERED: Nitroglycerin 2% Oint 1 GM UD Packet TOP ONE (22:50)
[2020-08-27] MEDS ORDERED: Furosemide 40 MG/4 ML VIAL IVPUSH ONE (22:50)
[2020-08-27] MEDS ORDERED: Aspirin 81 MG Tab.Chew PO ONE (23:26)
[2020-08-28] MEDS ORDERED: Iopamidol 755 Mg/ML 100 ML Bottle IV STA (00:29)
[2020-08-28] MEDS ORDERED: Sodium Chloride 0.9% 100 ML IV STA (00:29)
--- NOTE | 2020-08-28 01:33 | CRLCT ---
INDICATION: Shortness of breath, congestive heart failure, elevated D-dimer TECHNIQUE: CT chest with i.v. contrast using pulmonary angiographic technique. Coronal and sagittal reformats were obtained. CONTRAST: 100 mL Isovue 370 COMPARISON: 07/27/2019 FINDINGS: Cardiovascular: The pulmonary arteries are unremarkable in enhancement with no evidence of acute pulmonary embolism. Moderate, stable enlargement of the main pulmonary artery is present and measures 3.6 cm in maximal short axis. The heart has an unremarkable appearance and size. No sign of aneurysm in the thoracic aorta. Mediastinum: No mass or adenopathy seen. Lung: Scattered areas ground-glass opacities are present in the midlung zones and left apex. Peribronchial thickening interlobular smooth septal thickening is seen in both lung bases. Pleura and pericardium: Symmetric moderate large pleural effusions are noted. No significant pericardial effusion is present. Chest wall and axilla: Ill-defined soft tissue is seen in the retroareolar complexes of the chest bilaterally and most likely due to gynecomastia. Bone: Unremarkable for age. Upper abdomen: There is a stable cyst in the anterior liver measuring 2.3 cm. A smaller cyst is noted in the liver dome measuring 6 mm. IMPRESSIONS: 1. No CT evidence of acute pulmonary emboli seen. 2. Symmetric moderate large pleural effusions are noted. 3. Moderate, stable enlargement of the main pulmonary artery is present and measures 3.6 cm in maximal short axis. This is likely due to pulmonary hypertension. 4. Scattered areas ground-glass opacities are present in the midlung zones and left apex. Peribronchial thickening interlobular smooth septal thickening is seen in both lung bases. The imaging findings are most likely due to pulmonary edema. Clinical correlation is recommended to exclude COVID-19 infection which may account for some of the ground-glass opacities in the left upper lobe. Dictated by Jarod Huggins MD @ 08/28/2020 1:32:14 AM Please note that all CT scans at this facility use dose modulation, iterative reconstruction, and/or weight-based dosing when appropriate to reduce radiation dose to as low as reasonably achievable. Dictated by: Jarod Huggins MD @ 08/28/2020 01:32:26 (Electronically Signed)
[2020-08-28] MEDS ORDERED: hydrALAZINE 10 MG Tab PO STA (02:10)
[2020-08-28 02:41] VITALS: PULSE 53
[2020-08-28] MEDS ORDERED: Clopidogrel 75 MG Tab PO ONE (03:30)
[2020-08-28 04:27] VITALS: BP 167/79
--- NOTE | 2020-08-28 09:08 | CR ---
CHEST: 2 view CLINICAL HISTORY:SOB, orthopnea COMPARISON:2018 FINDINGS: Heart size is normal. Pulmonary vascular appears cephalized. There are diffuse bilateral pulmonary infiltrates. There is a small left effusion. IMPRESSION: Vascular cephalization and diffuse bilateral infiltrate is most consistent with CHF and pulmonary edema. Diffuse pneumonitis is felt less likely.
--- NOTE | 2020-08-28 09:09 | US ---
VL Duplex Lwr Ext Veins Ltd Rt INDICATION: leg swollen, elevated d-dimer FINDINGS: Ultrasound examination of the lower extremity using Doppler and compressive technique demonstrates that the common femoral, femoral, and popliteal veins are patent, and compressible throughout. The calf veins were segmentally visualized and are negative where seen. IMPRESSION: Negative for deep venous thrombosis.
== END 2020-08-28 04:27 ==
LOC: JP.ED 21:48
DX: I21.4 Non-ST elevation (NSTEMI) myocardial infarction (principal); I11.0 Hypertensive heart disease with heart failure; I50.9 Heart failure, unspecified; R79.1 Abnormal coagulation profile; E78.00 Pure hypercholesterolemia, unspecified; I10 Essential (primary) hypertension; J45.909 Unspecified asthma, uncomplicated; M19.90 Unspecified osteoarthritis, unspecified site; E11.42 Type 2 diabetes mellitus with diabetic polyneuropathy; F41.9 Anxiety disorder, unspecified; F32.9 Major depressive disorder, single episode, unspecified; E66.9 Obesity, unspecified; Z68.36 Body mass index [BMI] 36.0-36.9, adult; Z88.1 Allergy status to other antibiotic agents; Z88.0 Allergy status to penicillin; Z88.2 Allergy status to sulfonamides; Z88.8 Allergy status to other drugs, medicaments and biological substances; Z88.5 Allergy status to narcotic agent; Z79.82 Long term (current) use of aspirin; Z79.899 Other long term (current) drug therapy; Z79.84 Long term (current) use of oral hypoglycemic drugs; Z87.891 Personal history of nicotine dependence; Z20.828 Contact with and (suspected) exposure to other viral communicable diseases
CPT/HCPCS: 36415; 71046; 71275; 80053; 83880; 84484; 85027; 85379; 87635; 93005; 93010; 93971; 96374; 99285; A9270; J1940; Q9967; U0002